=== PATIENT | male | born 1940 | race Caucasian/White ===

== ENCOUNTER 2016-11-05 20:56 | Emergency (ER) | payer BC ==
[~2016-11-05] VITALS: Ht 177.8 cm; Wt 83.9 kg
--- NOTE | 2016-11-05 21:30 | ED EENT ---
History of Present Illness General Chief Complaint: Nasal Problems Stated Complaint: NOSE BLEED Source: patient Exam Limitations: no limitations History of Present Illness Time seen by provider: 21:28 Initial Comments To ER with a right-sided nosebleed that began earlier this evening. He's never had this before. This began after blowing his nose. He is on aspirin only. He does not wear oxygen at home. He does use Ankit-Synephrine for nasal congestion once or twice daily. Timing/Duration: abrupt Severity: moderate Location: nose Associated Symptoms: denies symptoms Allergies and Home Medications Allergies Coded Allergies: No Known Drug Allergies (Unverified , 11/11/10) Home Medications Allopurinol 300 Mg Tablet, #30 (Reported) Aspirin 325 Mg Tablet, 160 MG PO DAILY, (Reported) Benazepril HCl 20 Mg Tablet, #60 (Reported) Hydrochlorothiazide 50 Mg Tablet, #30 (Reported) Review of Systems Constitutional: see HPI Eyes: No Symptoms Reported Ears: No Symptoms Reported Nose: see HPI Mouth: no symptoms reported Throat: no symptoms reported Respiratory: no symptoms reported Cardiovascular: no symptoms reported Musculoskeletal: no symptoms reported Past Qsozptf-Idsdpb-Mvtbsh Hx Patient Social History Alcohol Use: Occasionally Uses Recreational Drug Use: No Smoking Status: Never a Smoker 2nd Hand Smoke Exposure: No Recent Foreign Travel: No Contact w/Someone Who Travel: No Recent Hopitalizations: No Seasonal Allergies Seasonal Allergies: No Cardiovascular Cardiac Disorders: Hypertension Physical Exam Vital Signs Vital Sign - Last 12Hours 11/05/16 21:00 Temp 97.9 Pulse 72 Resp 20 B/P (MAP) 130/80 Pulse Ox 93 O2 Delivery Room Air General Appearance: WD/WN, no apparent distress Eyes: bilateral eye EOMI, bilateral eye PERRL, bilateral eye normal inspection Ears: bilateral ear TM normal, bilateral ear auricle normal, bilateral ear canal normal Nose: other (small pulsatile bleed from the right side of the septum anteriorly. Easily cauterized with a few sticks of silver nitrate. Hemostasis achieved at this time 2119) Neck: non-tender, full range of motion Respiratory: normal breath sounds, no respiratory distress, no accessory muscle use Gastrointestinal: normal bowel sounds, non tender Neurologic/Psychiatric: alert, normal mood/affect, oriented x 3 Skin: normal color, warm/dry Progress/Results/Core Measures Results/Orders Vital Signs/I&O Vital Sign - Last 12Hours 11/05/16 21:00 Temp 97.9 Pulse 72 Resp 20 B/P (MAP) 130/80 Pulse Ox 93 O2 Delivery Room Air Departure Impression Impression: Primary Impression: Epistaxis Disposition: HOME, SELF-CARE Condition: Stable Departure-Patient Inst. Decision time for Depature: 21:29 Referrals: DANIELLE KAPLAN MD (PCP/Family) Primary Care Physician Patient Instructions: Nosebleeds (DC) Add. Discharge Instructions: 1. If the bleeding recurs, simply leaning forward, pinch your nose shut and return to the emergency room All discharge instructions reviewed with patient and/or family. Voiced understanding. LEO MASTERS APRN November 05, 2016 21:30
[2016-11-05] MEDS ORDERED: ASPI-808 PO (21:33)
[2016-11-05] MEDS ORDERED: ALLO300T2 (21:33)
[2016-11-05] MEDS ORDERED: BENA20TA2 (21:33)
[2016-11-05] MEDS ORDERED: HYDR50TA3 (21:33)
[2016-11-05 22:19] VITALS: BP 119/73
== END 2016-11-05 22:19 | disposition home or self-care (01) ==
LOC: EDUNIT# 20:56 → ER 20:58
DX: R04.0 Epistaxis (principal); I10 Essential (primary) hypertension; Z79.82 Long term (current) use of aspirin; Z79.899 Other long term (current) drug therapy
CPT/HCPCS: 99284

== ENCOUNTER → 2016-11-20 | Outpatient (CLI) | payer BC ==
[~2016-11-20] MED LIST: ALLO300T2; ASPI-808 PO; BENA20TA2; HYDR50TA3
--- NOTE | 2016-11-20 14:42 | Diagnostic Imaging Report ---
Scrotal ultrasound. INDICATION: Scrotal pain. FINDINGS: The right testicle is 5.4 x 3.1 x 3.2 cm. The left testicle is 5.3 x 2.7 x 3.1 cm. The testicles are fairly homogeneous with no focal mass seen. There is a 6 mm right epididymal cyst. No solid mass is seen. The left epididymis is slightly larger and hypervascular compared to the right. Color Doppler evaluation demonstrates symmetric vascularity in the testicles with arterial and venous waveforms noted in both testicles. There is minimal fluid around the testicles, probably physiologic. IMPRESSION: Mild left epididymitis. Dictated by: Dictated on workstation # [id number]
== END ==
LOC: RAD 13:49
PROVIDERS: ATTEND Specialist
DX: N50.812 Left testicular pain (principal); N45.1 Epididymitis
CPT/HCPCS: 76870

== ENCOUNTER 2019-06-01 11:18 | Emergency (ER) | payer MEDICARE, OTHER ==
[~2019-06-01] VITALS: Ht 180.3 cm; Wt 79.4 kg
[~2019-06-01 11:18] MED LIST changes: -BENA20TA2; +BENA20TA7
[2019-06-01] MEDS ORDERED: TETANUS,DIPTH,PERTUSS P/F (BOOSTRIX) 0.5 ML VIAL IM ONE (11:45)
[2019-06-01] MEDS ORDERED: CEPH-507 PO (11:45)
--- NOTE | 2019-06-01 11:45 | ED Head Injury ---
General Chief Complaint: Laceration Stated Complaint: HEAD LAC Nursing Triage Note: PT WAS HIT IN THE RIGHT SIDE FOREHEAD WITH A HAND DELORES. NO FALL, LOC, DIZZYNESS, N/V. Source: patient Exam Limitations: no limitations History of Present Illness Date Seen by Provider: Jun 01, 2019 Time Seen by Provider: 11:41 Initial Comments ER with reports of a scalp laceration, this of the right frontal scalp, he was at work cleaning out a building using a 2 wheel delores. The handle popped up and struck him in the aforementioned area. There was no loss of consciousness no headache no dizziness no confusion. He is not on any anticoagulant or antiplatelet medications. His only medication is fish oil. Tetanus is not up-to-date. This occurred 20 minutes prior to arrival. He states this was a very dirty area he was cleaning. Occurred: this evening Severity: moderate Location: frontal Method of Injury: unknown Loss of Consciousness: no loss of consciousness Associated Systoms: No Headaches, No Nausea/Vomiting Allergies and Home Medications Allergies Coded Allergies: No Known Drug Allergies (Unverified , 11/11/10) Home Medications Aspirin 325 Mg Tablet, 160 MG PO DAILY, (Reported) Cephalexin 500 Mg Capsule, 500 MG PO TID Prescribed by: LEO MASTERS on 06/01/19 1145 Patient Home Medication List Home Medication List Reviewed: Yes Review of Systems Review of Systems Constitutional: see HPI Eyes: No Symptoms Reported Ears, Nose, Mouth, Throat: no symptoms reported Respiratory: no symptoms reported Cardiovascular: no symptoms reported Genitourinary: no symptoms reported Musculoskeletal: no symptoms reported Skin: no symptoms reported Psychiatric/Neurological: No Symptoms Reported; Denies Headache Endocrine: No Symptoms Reported Past Oixskks-Itkxcx-Rxxqes Hx Patient Social History Alcohol Use: Denies Use Recreational Drug Use: No Smoking Status: Never a Smoker 2nd Hand Smoke Exposure: No Recent Foreign Travel: No Contact w/Someone Who Travel: No Recent Infectious Disease Expo: No Recent Hopitalizations: No Physical Abuse: No Sexual Abuse: No Mistreated: No Fear: No Seasonal Allergies Seasonal Allergies: No Past Medical History Surgeries: Yes (GROWTH OFF LEFT OUTSIDE ABD) Adenoidectomy, Tonsillectomy Respiratory: No Cardiac: Yes Hypertension Neurological: No Genitourinary: No Gastrointestinal: No Musculoskeletal: No Endocrine: No HEENT: No Cancer: No Psychosocial: No Integumentary: No Blood Disorders: No Physical Exam Vital Signs Vital Signs - First Documented 06/01/19 06/01/19 11:24 11:55 Pulse 92 Resp 17 B/P (MAP) 156/95 (115) Pulse Ox 98 O2 Delivery Room Air Capillary Refill : Less Than 3 Seconds Height, Weight, BMI Height: 5'10.00" Weight: 185lbs. oz. 83.493132hb; 24.00 BMI Method:Stated General Appearance: WD/WN, no apparent distress HEENT: PERRL/EOMI, normal ENT inspection, TMs normal, other (2 cm laceration to the right frontal scalp oriented anterior to posterior. Depth is simultaneous tissue, minimal active bleeding.) Neck: non-tender, full range of motion; No tender lateral, No tender midline Cardiovascular: regular rate, rhythm, no murmur Respiratory: no respiratory distress, no accessory muscle use Gastrointestinal: normal bowel sounds, non tender, soft Psychiatric: alert, oriented x 3 [place] Nerves: normal hearing, normal speech, PERRL Skin: normal color, warm/dry [place] Coma Score Best Eye Response: (4) Open Spontaneously Best Verbal Response: (5) Oriented Best Motor Response: (6) Obeys Commands [place] Total: 15 Procedures/Interventions Wound Location: Scalp Wound Length (cm): 2 Wound's Depth, Shape: linear, sub Q Wound Explored: clean Irrigated w/ Saline (ccs): 120 Anesthesia: Lidocaine w/ Epi Volume Anesthetic (ccs): 3 Staple Repair: Stapler 35W Number of Sutures: 6 Progress/Results/Core Measures Results/Orders My Orders Orders - LEO MASTERS APRN Dipht,Pertuss(Acell),Tet Adult (Boostrix (06/01/19 11:45) Medications Given in ED Current Medications Medications Dose Ordered Sig/Chelo Route Start Time Stop Time Status Last Admin Dose Admin Diphtheria/ Tetanus/Acell Pertussis 0.5 ml ONCE ONCE IM 06/01/19 11:45 06/01/19 11:46 DC 06/01/19 11:50 0.5 ML Vital Signs/I&O 06/01/19 06/01/19 11:24 11:55 Pulse 92 81 Resp 17 18 B/P (MAP) 156/95 (115) 149/80 Pulse Ox 98 O2 Delivery Room Air Room Air Blood Pressure Mean: 115 POS Departure Communication (Admissions) I discussed with obtaining a head CT, this would be the recommendation given his age, but he has no symptoms of head injury, he is not on anticoagulant use and this was not a fall, sounds like this was more of a sharp piece of metal on the handle that got him. He would prefer to forego CT imaging at this time, he assures that he'll return for any sign of head injury such as headache nausea vomiting dizziness or confusion. Impression Primary Impression: Scalp laceration Qualified Codes: S01.01XA - Laceration without foreign body of scalp, initial encounter Disposition: HOME, SELF-CARE Condition: Stable Departure-Patient Inst. Decision time for Depature: 11:44 Referrals: DANIELLE KAPLAN MD (PCP/Family) Primary Care Physician Patient Instructions: Laceration Repair With Hiren (DC) Add. Discharge Instructions: 1. Return to ER for any concerns 2. Follow-up with your doctor later this week for recheck. Take antibiotics as directed you may shower tonight leading water run over this generally do not scrub it however. No need to apply any ointments. Return promptly to ER for any sign of a head injury which would be headache dizziness confusion nausea or vomiting. All discharge instructions reviewed with patient and/or family. Voiced understanding. Scripts Cephalexin (Keflex) 500 Mg Capsule 500 MG PO TID, #15 CAP Prov: LEO MASTERS APRN 06/01/19 LEO MASTERS APRN Jun 01, 2019 11:45 POS
[2019-06-01 11:55] VITALS: BP 149/80
== END 2019-06-01 11:55 | disposition home or self-care (01) ==
LOC: ER 11:18 → EDUNIT# 11:18 → ER 11:55
DX: S01.01XA Laceration without foreign body of scalp, initial encounter (principal); I10 Essential (primary) hypertension; Z90.49 Acquired absence of other specified parts of digestive tract; Z90.89 Acquired absence of other organs; Z23 Encounter for immunization; Z79.82 Long term (current) use of aspirin; W22.8XXA Striking against or struck by other objects, initial encounter; Y92.59 Other trade areas as the place of occurrence of the external cause
CPT/HCPCS: 90471; 90715; 99284

== ENCOUNTER 2019-06-08 10:59 | Emergency (ER) | payer OTHER, MEDICARE ==
[~2019-06-08] VITALS: Ht 180 cm; Wt 79.4 kg
[~2019-06-08 10:59] MED LIST changes: +CEPH-507 PO
[2019-06-08 11:04] VITALS: BP 141/81
== END 2019-06-08 11:05 | disposition home or self-care (01) ==
LOC: EDUNIT# 10:59 → ER 11:00
DX: S01.81XD Laceration without foreign body of other part of head, subsequent encounter (principal); X58.XXXD Exposure to other specified factors, subsequent encounter

== ENCOUNTER → 2019-12-29 | Outpatient (CLI) | payer OTHER, MEDICARE ==
--- NOTE | 2019-12-29 16:36 | Diagnostic Imaging Report ---
PROCEDURE: US right lower extremity venous. TECHNIQUE: Multiple real-time grayscale images were obtained over the right lower extremity in various projections. Additional spectral analysis and color Doppler duplex images were also obtained. INDICATION: Right leg swelling The veins of the right leg have good color filling and compressibility. There is phasic flow and a normal response to augmentation. IMPRESSION: Negative venous Doppler of the right leg Dictated by: Dictated on workstation # [id number]
== END ==
LOC: RAD 15:06
PROVIDERS: ATTEND Family Medicine
DX: M79.604 Pain in right leg (principal); M79.89 Other specified soft tissue disorders

== ENCOUNTER 2020-07-29 17:11 | Inpatient (IN) | payer MEDICARE, OTHER ==
[~2020-07-29] VITALS: Ht 177 cm; Wt 82.0 kg
[~2020-07-29 17:11] MED LIST changes: -BENA20TA7; +BENA20TA7 PO
--- NOTE | 2020-07-29 17:26 | ED General ---
General Stated Complaint: HIGH BP Source of Information: Patient Exam Limitations: No Limitations History of Present Illness Date Seen by Provider: Jul 29, 2020 Time Seen by Provider: 17:24 Initial Comments To ER by private vehicle with reports of high blood pressure. He had a little pressure on his chest earlier which made him check his blood pressure and found it to be 200/120. This worried him and he came to ER. He states that right now he feels "perfectly fine". Typically his BP runs 120s over 90s well controlled on norvasc and benazepril. No cough no fever no chills. He had laser eye surgery last week and was told on clinical exam prior to surgery that the doctor heard something on the right side of his chest and asked him if he had any history of heart failure. Timing/Duration: 1-3 Hours Severity: Moderate Associated Systoms: No Cough, No Shortness of Air Allergies and Home Medications Allergies Coded Allergies: No Known Drug Allergies (Unverified , 11/11/10) Home Medications Amlodipine Besylate 5 Mg Tablet, 5 MG PO BID, (Reported) Benazepril HCl 20 Mg Tablet, 20 MG PO BID, (Reported) Patient Home Medication List Home Medication List Reviewed: Yes Review of Systems Review of Systems Constitutional: see HPI EENTM: see HPI Respiratory: see HPI Cardiovascular: see HPI, chest pain Genitourinary: no symptoms reported Musculoskeletal: no symptoms reported Skin: no symptoms reported Psychiatric/Neurological: No Symptoms Reported Hematologic/Lymphatic: No Symptoms Reported Immunological/Allergic: no symptoms reported Past Koteuog-Dghcyh-Fxfqlc Hx Patient Social History 2nd Hand Smoke Exposure: No Recent Hopitalizations: No Seasonal Allergies Seasonal Allergies: No Past Medical History Surgeries: Yes (GROWTH OFF LEFT OUTSIDE ABD) Adenoidectomy, Tonsillectomy Respiratory: No Cardiac: Yes Hypertension Neurological: No Genitourinary: No Gastrointestinal: No Musculoskeletal: No Endocrine: No HEENT: No Cancer: No Psychosocial: No Integumentary: No Blood Disorders: No Physical Exam Vital Signs Capillary Refill : Height, Weight, BMI Height: 5'10.00" Weight: 185lbs. oz. 83.735201bj; 24.00 BMI Method:Estimated General Appearance: No Apparent Distress, WD/WN, Other (Blood pressure 188/124) Eyes: Bilateral Eye Normal Inspection, Bilateral Eye PERRL, Bilateral Eye EOMI Neck: Full Range of Motion, Normal Inspection Respiratory: No Accessory Muscle Use, No Respiratory Distress, Crackles (On the right) Cardiovascular: Regular Rate, Rhythm, Normal Peripheral Pulses Gastrointestinal: Normal Bowel Sounds, Non Tender, Soft Extremity: Normal Capillary Refill, Normal Inspection Neurologic/Psychiatric: Alert, Oriented x3 Skin: Normal Color, Warm/Dry Progress/Results/Core Measures Suspected Sepsis SIRS Temperature: Pulse: Respiratory Rate: Laboratory Tests 07/29/20 17:33: White Blood Count 10.1 Blood Pressure / Mean: Laboratory Tests 07/29/20 17:33: Creatinine 1.53H, Platelet Count 165, Total Bilirubin 0.7 Results/Orders Lab Results Laboratory Tests Test 07/29/20 17:20 07/29/20 17:33 Range/Units Urine Color YELLOW Urine Clarity CLEAR Urine pH 7.5 5-9 Urine Specific [place] 1.015 L 1.016-1.022 Urine Protein 1+ H NEGATIVE Urine Glucose (UA) NEGATIVE NEGATIVE Urine Ketones NEGATIVE NEGATIVE Urine Nitrite NEGATIVE NEGATIVE Urine Bilirubin NEGATIVE NEGATIVE Urine Urobilinogen 0.2 < = 1.0 MG/DL Urine Leukocyte Esterase NEGATIVE NEGATIVE Urine RBC (Auto) NEGATIVE NEGATIVE Urine RBC NONE /HPF Urine WBC RARE /HPF Urine Squamous Epithelial Cells RARE /HPF Urine Crystals NONE /LPF Urine Bacteria NEGATIVE /HPF Urine Casts NONE /LPF Urine Mucus NEGATIVE /LPF Urine Culture Indicated NO White Blood Count 10.1 4.3-11.0 10^3/uL Red Blood Count 5.92 H 4.30-5.52 10^6/uL Hemoglobin 17.5 13.3-17.7 g/dL Hematocrit 51 40-54 % Mean Corpuscular Volume 86 80-99 fL Mean Corpuscular Hemoglobin 30 25-34 pg Mean Corpuscular Hemoglobin Concent 34 32-36 g/dL Red Cell Distribution Width 12.7 10.0-14.5 % Platelet Count 165 130-400 10^3/uL Mean Platelet Volume 10.0 9.0-12.2 fL Immature Granulocyte % (Auto) 0 % Neutrophils (%) (Auto) 84 H 42-75 % Lymphocytes (%) (Auto) 10 L 12-44 % Monocytes (%) (Auto) 5 0-12 % Eosinophils (%) (Auto) 1 0-10 % Basophils (%) (Auto) 0 0-10 % Neutrophils # (Auto) 8.4 H 1.8-7.8 10^3/uL Lymphocytes # (Auto) 1.0 1.0-4.0 10^3/uL Monocytes # (Auto) 0.5 0.0-1.0 10^3/uL Eosinophils # (Auto) 0.1 0.0-0.3 10^3/uL Basophils # (Auto) 0.0 0.0-0.1 10^3/uL Immature Granulocyte # (Auto) 0.0 0.0-0.1 10^3/uL Sodium Level 141 135-145 MMOL/L Potassium Level 4.6 3.6-5.0 MMOL/L Chloride Level 101 98-107 MMOL/L Carbon Dioxide Level 25 21-32 MMOL/L Anion Gap 15 H 5-14 MMOL/L Blood Urea Nitrogen 26 H 7-18 MG/DL Creatinine 1.53 H 0.60-1.30 MG/DL Estimat Glomerular Filtration Rate 44 BUN/Creatinine Ratio 17 Glucose Level 98 70-105 MG/DL Calcium Level 9.5 8.5-10.1 MG/DL Corrected Calcium 8.5-10.1 MG/DL Magnesium Level 2.4 1.6-2.4 MG/DL Total Bilirubin 0.7 0.1-1.0 MG/DL Aspartate Amino Transf (AST/SGOT) 32 5-34 U/L Alanine Aminotransferase (ALT/SGPT) 17 0-55 U/L Alkaline Phosphatase 94 40-136 U/L Troponin I 0.034 H <0.028 NG/ML Total Protein 8.4 H 6.4-8.2 GM/DL Albumin 4.6 H 3.2-4.5 GM/DL My Orders Orders - LEO MASTERS APRN Troponin I (07/29/20 17:22) BNP (07/29/20 17:22) Magnesium (07/29/20 17:22) Chest 1 View, Ap/Pa Only (07/29/20 17:22) Ed Iv/Invasive Line Start (07/29/20 17:22) Cbc With Automated Diff (07/29/20 17:22) Comprehensive Metabolic Panel (07/29/20 17:22) Ekg Tracing (07/29/20 17:22) Continuous Ekg Monitoring (07/29/20 17:22) Clonidine Tablet (Catapres Tablet) (07/29/20 17:30) Ua Culture If Indicated (07/29/20 17:26) Procalcitonin (Pct) (07/29/20 17:47) Ondansetron Injection (Zofran Injectio (07/29/20 18:00) Ondansetron Injection (Zofran Injectio (07/29/20 17:46) Clopidogrel Tablet (Plavix Tablet) (07/29/20 18:00) Aspirin Chewable Tablet (Baby Aspirin Ch (07/29/20 18:00) Nitroglycerin 0.4 Mg Btl 25's (Nitrostat (07/29/20 17:56) Covid 19 Inhouse Test (07/29/20 18:05) Metoprolol Tartrate Injection (Lopressor (07/29/20 18:15) Medications Given in ED Current Medications Medications Dose Ordered Sig/Chelo Route Start Time Stop Time Status Last Admin Dose Admin Aspirin 324 mg ONCE ONCE PO 07/29/20 18:00 07/29/20 18:01 DC 07/29/20 18:01 324 MG Clonidine HCl 0.1 mg ONCE ONCE PO 07/29/20 17:30 07/29/20 17:31 DC 07/29/20 17:39 0.1 MG Clopidogrel Bisulfate 300 mg ONCE ONCE PO 07/29/20 18:00 07/29/20 18:01 DC 07/29/20 18:01 300 MG Nitroglycerin 0.4 mg STK-MED ONCE SL 07/29/20 17:56 07/29/20 18:00 DC 07/29/20 18:01 0.4 MG Ondansetron HCl 8 mg ONCE ONCE IVP 07/29/20 18:00 07/29/20 18:01 DC 07/29/20 17:54 8 MG Vital Signs/I&O Capillary Refill : Departure Communication (Admissions) 175-became nauseated and with recurrence of chest pressure. 8 mg of Zofran ordered. 1802-EKG shows ST segment elevation in aVR aVL V1 V2 V3 with reciprocal depression in lead II, III and aVF. Spoke with Dr. Shukla, will call in the [employer] team. 300 mg of Plavix and 324 mg of aspirin ordered as well as nitroglycerin 0.4mg sl and lopressor 5mg IV. . Impression Primary Impression: STEMI (ST elevation myocardial infarction) Qualified Codes: I21.3 - ST elevation (STEMI) myocardial infarction of unspecified site Disposition: ADMITTED INPATIENT Condition: Stable Admissions Decision to Admit Reason: Admit from ER (General) Decision to Admit/Date: Jul 29, 2020 Departure-Patient Inst. Referrals: DNAII MAGAÑA MD (PCP/Family) Primary Care Physician LEO MASTERS APRN Jul 29, 2020 17:25
[2020-07-29] MEDS ORDERED: cloNIDine 0.1 MG (CATAPRES) TAB PO ONE (17:30)
[2020-07-29 17:31] LABS: BILIRUBIN,URINE NEGATIVE (NEGATIVE); CLARITY,URINE CLEAR; COLOR,URINE YELLOW; GLUCOSE, URINE (UA) NEGATIVE (NEGATIVE); KETONES,URINE NEGATIVE (NEGATIVE); LEUKOCYTE ESTERASE ,URINE NEGATIVE (NEGATIVE); NITRITE,URINE NEGATIVE (NEGATIVE); PH,URINE 7.5 (5-9); PROTEIN,URINE 1+ (NEGATIVE)
[2020-07-29 17:38] LABS: BACTERIA,URINE NEGATIVE /HPF; SQUAMOUS EPITHELIAL CELL,UR RARE /HPF; WBC,URINE RARE /HPF
[2020-07-29 17:41] LABS: BASOPHILS % (AUTO) 0 % (0-10); EOSINOPHILS # (AUTO) 0.1 10^3/uL (0.0-0.3); EOSINOPHILS % (AUTO) 1 % (0-10); HEMATOCRIT 51 % (40-54); HEMOGLOBIN 17.5 g/dL (13.3-17.7); LYMPHOCYTES % (AUTO) 10 % (12-44); MEAN CORPUSCULAR HEMOGLOBIN 30 pg (25-34); MEAN CORPUSCULAR HGB CONC 34 g/dL (32-36); MEAN CORPUSCULAR VOLUME 86 fL (80-99); MONOCYTES # (AUTO) 0.5 10^3/uL (0.0-1.0); MONOCYTES % (AUTO) 5 % (0-12); NEUTROPHILS # (AUTO) 8.4 10^3/uL (1.8-7.8); NEUTROPHILS % (AUTO) 84 % (42-75); PLATELET COUNT 165 10^3/uL (130-400); WHITE BLOOD COUNT 10.1 10^3/uL (4.3-11.0)
[2020-07-29] MEDS ORDERED: AMLO-250 PO (17:42)
[2020-07-29] MEDS ORDERED: ONDANSETRON 4 MG/2 ML (SDV) Z0FRAN ONE (17:46)
--- NOTE | 2020-07-29 17:47 | NUR ---
Pt c/o nausea at this time, zofran given
[2020-07-29 17:54] LABS: ALBUMIN 4.6 GM/DL (3.2-4.5)
[2020-07-29 17:55] LABS: CHLORIDE 101 MMOL/L (98-107); POTASSIUM 4.6 MMOL/L (3.6-5.0); SODIUM 141 MMOL/L (135-145)
[2020-07-29 17:56] LABS: CALCIUM 9.5 MG/DL (8.5-10.1)
[2020-07-29] MEDS ORDERED: NITROGLYCERIN 0.4 MG SL TABS BTL 25'S SL ONE (17:56)
[2020-07-29 17:57] LABS: GLUCOSE 98 MG/DL (70-105); TOTAL PROTEIN 8.4 GM/DL (6.4-8.2)
[2020-07-29 17:58] LABS: CARBON DIOXIDE 25 MMOL/L (21-32)
[2020-07-29 17:59] LABS: BILIRUBIN,TOTAL 0.7 MG/DL (0.1-1.0)
[2020-07-29 18:00] LABS: ALKALINE PHOSPHATASE 94 U/L (40-136)
[2020-07-29] MEDS ORDERED: ASPIRIN 81 MG CHEW (CHILDREN'S ASA) PO ONE (18:00)
[2020-07-29] MEDS ORDERED: ONDANSETRON 4 MG/2 ML (SDV) Z0FRAN IVP ONE (18:00)
[2020-07-29] MEDS ORDERED: CLOPIDOGREL 300 MG (PLAVIX) TABLET PO ONE ×2 (18:00→18:30)
--- NOTE | 2020-07-29 18:00 | NUR ---
cath lab nurse called in per Dr Shukla's request for stemi
[2020-07-29 18:01] LABS: CREATININE SERUM 1.53 MG/DL (0.60-1.30); GFR ESTIMATED 44
[2020-07-29 18:02] LABS: BUN/CREATININE RATIO 17
[2020-07-29 18:03] LABS: ALANINE AMINOTRANSFERASE 17 U/L (0-55)
[2020-07-29 18:04] LABS: MAGNESIUM 2.4 MG/DL (1.6-2.4)
--- NOTE | 2020-07-29 18:08 | Diagnostic Imaging Report ---
EXAMINATION: Chest 1 view. HISTORY: Hypertension. Right-sided crackles. COMPARISON: None available. FINDINGS: The lung volumes are normal. No focal consolidation is seen. Small amount of atelectasis is seen in the left lung base. No large pleural effusion or pneumothorax is seen. The cardiomediastinal silhouette is normal in size and contour. There is calcified aortic atherosclerotic plaque. No acute osseous abnormality is seen. IMPRESSION: Left basilar atelectasis. No focal consolidation or pleural effusion. Dictated by: Dictated on workstation # [id number]
[2020-07-29] MEDS ORDERED: meTOprolol 5 MG/5 ML (LOPRESSOR) VIAL IV ONE (18:15)
[2020-07-29] MEDS ORDERED: MIDAZOLAM 5 MG/5 ML (VERSED) VIAL ONE (18:24)
[2020-07-29] MEDS ORDERED: LIDOCAINE 1% INJ 20 ML 20 ML VIAL ONE (18:24)
[2020-07-29] MEDS ORDERED: EPTIFIBATIDE BOLUS 20 ML IV ONE (18:25)
[2020-07-29] MEDS ORDERED: NITRO DRIP 25000 MCG/D5W 250 ML IV ONE ×2 (18:25→18:54)
[2020-07-29] MEDS ORDERED: NS IV 1000 ML 1,000 ML ONE (18:25)
[2020-07-29] MEDS ORDERED: HEParin (CATH LAB) 2,000 ML IV ONE (18:25)
[2020-07-29] MEDS ORDERED: fentaNYL INJECTION 100 MCG/2 ML AMP ONE (18:25)
[2020-07-29] MEDS ORDERED: HEParin 1000 UNIT/ML (10ML VIAL) FOR BOLUS ONE (18:25)
[2020-07-29] MEDS ORDERED: HEParin 1000 UNIT/ML (10ML VIAL) FOR BOLUS IV SCH (18:30)
--- NOTE | 2020-07-29 18:30 | Cardiology History & Physical ---
HPI-Cardiology Cardiology Consultation Date of Consultation 07/29/20 Date of Admission Time Seen by Provider: 18:27 Indication: STEMI HPI 79 years old gentleman with history of hypertension, BPH, has been having waxing and waning left-sided chest pain on and off for the past 24 hours, noted today that his blood pressure is significantly elevated was around 200/100. Came into the emergency room and on arrival to the ER he denied any active pain. The pressure was elevated. EKG showed changes suggestive of ST elevation myocardial infarction, after arrival within 30 minutes he started to have active chest pain. Described as dull achiness on the left side of his chest. No shortness of breath. No diaphoresis. No palpitation. PMH-Cardiology Seasonal Allergies Seasonal Allergies: No Surgeries Yes (GROWTH OFF LEFT OUTSIDE ABD) Respiratory No Cardiovascular Yes Neurological No Genitourinary No Gastrointestinal No Musculoskeletal No Endocrine No HEENT No Cancer No Psychosocial No Integumentary No Blood Transfusions No Social History Patient Social History Marrital Status: Employed/Student: retired Family Hx Other Noncontributory ROS-Cardiology Review of Systems General: No Chills, No Night Sweats, No Fatigue, No Malaise, No Appetite HEENT: No Head Aches, No Visual Changes, No Eye Pain, No Ear Pain, No Dysphasia, No Sinus Congestion, No Post Nasal Drip, No Sore Throat Pulmonary: No Dyspnea, No Cough, No Pleuritic Chest Pain Cardiovascular: Chest Pain; No: Palpitations, Orthopnea, Paroxysmal Noc. Dyspnea, Edema, Lt Headedness Gastrointestinal: No: Nausea, Vomiting, Abdominal Pain, Diarrhea, Constipation, Melena, Hematochezia Genitourinary: No Dysuria, No Frequency, No Incontinence, No Hematuria, No Retention Musculoskeletal: No: neck pain, shoulder pain, arm pain, back pain, hand pain, leg pain, foot pain Neurological: No: Weakness, Numbness, Incoordination, Change in speech, Confusion, Seizures Home Medications & Allergies Allergies: Coded Allergies: No Known Drug Allergies (Unverified , 11/11/10) Home Medication List Reviewed: Yes Exam-Cardiology Exam General Appearance: Alert, Oriented X3, Cooperative, No Acute Distress HEENT: Atraumatic, PERRLA Respiratory: Clear to Auscultation, Normal Air Movement Cardiovascular: Regular Rate, Normal S1, Normal S2, No Murmurs Abdominal: Normal Bowel Sounds, Soft, No Tenderness, No Hepatosplenomegaly, No Masses Extremities: No Clubbing, No Cyanosis, No Edema, Normal Pulses, No Tendernes s/Swelling Skin: No Rashes, No Breakdown, No Significant Lesion Neuro: Normal Gait, Normal Speech, Strength at 5/5 X4 Ext, Normal Tone, Sensation Intact Psych/Mental Status: Mental Status NL, Mood NL Results Labs Labs Laboratory Tests 07/29/20 17:20: Urine Color YELLOW, Urine Clarity CLEAR, Urine pH 7.5, Urine Specific [place] 1.015L, Urine Protein 1+H, Urine Glucose (UA) NEGATIVE, Urine Ketones NEGATIVE, Urine Nitrite NEGATIVE, Urine Bilirubin NEGATIVE, Urine Urobilinogen 0.2, Urine Leukocyte Esterase NEGATIVE, Urine RBC (Auto) NEGATIVE, Urine RBC NONE, Urine WBC RARE, Urine Squamous Epithelial Cells RARE, Urine Crystals NONE, Urine Bacteria NEGATIVE, Urine Casts NONE, Urine Mucus NEGATIVE, Urine Culture Indicated NO 07/29/20 17:33: White Blood Count 10.1, Red Blood Count 5.92H, Hemoglobin 17.5, Hematocrit 51, Mean Corpuscular Volume 86, Mean Corpuscular Hemoglobin 30, Mean Corpuscular Hemoglobin Concent 34, Red Cell Distribution Width 12.7, Platelet Count 165, Mean Platelet Volume 10.0, Immature Granulocyte % (Auto) 0, Neutrophils (%) (Auto) 84H, Lymphocytes (%) (Auto) 10L, Monocytes (%) (Auto) 5, Eosinophils (%) (Auto) 1, Basophils (%) (Auto) 0, Neutrophils # (Auto) 8.4H, Lymphocytes # (Auto) 1.0, Monocytes # (Auto) 0.5, Eosinophils # (Auto) 0.1, Basophils # (Auto) 0.0, Immature Granulocyte # (Auto) 0.0, Sodium Level 141, Potassium Level 4.6, Chloride Level 101, Carbon Dioxide Level 25, Anion Gap 15H, Blood Urea Nitrogen 26H, Creatinine 1.53H, Estimat Glomerular Filtration Rate 44, BUN/Creatinine Ratio 17, Glucose Level 98, Calcium Level 9.5, Corrected Calcium , Magnesium Level 2.4, Total Bilirubin 0.7, Aspartate Amino Transf (AST/SGOT) 32, Alanine Aminotransferase (ALT/SGPT) 17, Alkaline Phosphatase 94, Troponin I 0.034H, B- Type Natriuretic Peptide 26.6, Total Protein 8.4H, Albumin 4.6H A/P-Cardiology Admission Diagnosis Acute myocardial infarction Coronary artery disease Malignant hypertension Hyperlipidemia Admission Status: Inpatient Order (span 2 midnights) Reason for Inpatient Admission: Acute myocardial infarction Assessment/Plan Acute/subacute ST elevation myocardial infarction, patient has been having chest pain waxing and waning for the past 24 hours, had EKG changes suggestive of ST elevation [place] in the anterior wall, was initially chest pain-free on arrival to the emergency room then started to have active chest pain Malignant hypertension, received clonidine, Lopressor, blood pressure is still elevated. I will start him on BROOK[place]NN inhibitor, beta blockers and nitroglycerin Questionable hyperlipidemia I will evaluate lipid profile BPH LANCE MILES MD Jul 29, 2020 18:30
--- NOTE | 2020-07-29 18:31 | Cardiac Procedure Note-CS/ASA ---
Pre-Procedure Note Pre-Op Procedure Note H&P Reviewed The H&P was reviewed, patient examined and no changes noted. Date H&P Reviewed: Jul 29, 2020 Time H&P Reviewed: 18:31 Conscious Sedation Pre-Proced Time 18:31 ASA Score 3 For ASA 3 and 4: Consider anesthesia and medical clearance. Also, for patients with a history of failed moderate sedation consider anesthesia. Airway Lungs Heart ASA score ASA 1: a normal healthy patient ASA 2: a patient with a mild systemic disease (mid diabetes, controlled hypertension, obesity x ASA 3: a patient with a severe systemic disease that limits activity (angina, COPD, prior Myocardial infarction) ASA 4: a patient with an incapacitating disease that is a constant threat to life (CHF, renal failure) ASA 5: a moribund patient not expected to survive 24 hrs. (ruptured aneurysm) ASA 6: a declared brain- patient whose organs are being harvested. For emergent operations, add the letter E after the classification Mallampati Classification Grade 3 Sedation Plan Analgesia, Amnesia, Plan communicated to team members, Discussed options with patient/fam, Discussed risks with patient/fam The patient is an appropriate candidate to undergo the planned procedure, sedation, and anesthesia. The patient immediately re-assessed prior to indication. LANCE MILES MD Jul 29, 2020 18:31
--- NOTE | 2020-07-29 18:41 | NUR ---
Pt to cardiac cath technician at this time, report given to LAYLA Echevarria and LAYLA Alicia. All belongings sent with pt. Pt has updated family by phone.
[2020-07-29] MEDS ORDERED: PATIENT MAY USE OWN MEDS, ALL PO SCH (19:15)
--- NOTE | 2020-07-29 19:25 | Cardiac Cath Report ---
Cardiac Cath Report Physician (s)/Metal Container Maker (s) Physician LANCE MILES MD Pre-Procedure Diagnosis Pre-Procedure Diagnosis: ST elevation myocardial infarction Post-Procedure Note Procedure Start Date: Jul 29, 2020 Name of Procedure: Left heart catheterization Emergency stenting of the LAD Findings/Procedure Note PROCEDURE NOTE: 79 years old gentleman with history of hypertension, has been having chest pain waxing and waning, came into the emergency room because of his elevated blood pressure his blood pressure was 200/100. He denied any chest pain on arrival to the emergency room. At 1752 patient started to have chest pain, EKG was done which showed ST elevation myocardial infarction and the anterior leads, I was called for evaluation and the catheter lab team was activated for emergency procedure. After explaining the procedure to the patient, all pros and cons were explained, all questions were answered. The patient signed the consent and then he was placed on the cardiac catheterization laboratory. Groin was prepped SL fashion local anesthesia was used. Sheath placed in the right femoral artery. Lucia right catheter was used to access the right coronary system, EBU guide was advanced to the left coronary system and intervention was made, pigtail catheter advanced to the left ventricular cavity and left ventricular pressure was evaluated and left ventriculogram was done, pullback LV to aorta was done. Percutaneous intervention Patient received 5000 unit of heparin in the emergency room, aspirin 325 and Plavix 600 mg, EBU guide was advanced to the left coronary system, angiogram showed total occlusion of the LAD proximally. BMW wire was advanced distally, across the lesion, predilatation with Mini Treck 2 x 12 millimeter with 1 inflation reestablishment of the flow then I proceeded with deployment of drug- eluting stent Jil 2.25 x 23 mm 115 reese expanded to 2.5 mm with excellent results. Time from onset of chest pain to reestablishment of flow was 66 minutes At the end of the procedure the sheath was removed. Closure device was deployed FINDINGS: Hemodynamics LV 120/8, end-diastolic pressure of 8 Aorta 169/93 mean of 100, during pullback no significant gradient was noted, patient was already on nitroglycerin drip ANATOMY: Left Main is free of obstructive disease Left Anterior Descending is totally occluded proximally, emergency angioplasty and deployment of Jil 2.25 x 23 mm expanded to 2.5 mm under 15 reese with excellent results, door to balloon time was 66 minutes Left Circumflex is moderate in size with mild irregularity nonobstructive disease Right Coronory Artery is dominant artery with mild disease nonobstructive disease LV Gram was done showing normal left ventricular size, normal contractility, EF 60 percent, anterior wall is bharati normally CONCLUSION: 1. Acute ST elevation myocardial infarction in the anterior wall with emergency angioplasty and stenting with door to balloon time 66 minutes 2. Total occlusion of the LAD was successful balloon angioplasty then deployment of Jil 2.25 x 23 mm expanded to 2.5 mm with excellent results 3. Large dominant right coronary artery with mild disease nonobstructive disease, mild disease in the circumflex artery 4. Normal left ventricular size, normal contracted 50, anterior wall is bharati normally, EF 60 percent 5. Malignant hypertension, patient was started on nitroglycerin drip DISCUSSION AND RECOMMENDATION: Patient was loaded with aspirin and Plavix, start on nitroglycerin drip, I am starting Toprol, lisinopril and Lipitor Anesthesia Type: Conscious Sedation Estimated blood loss (mL): 25 ml Contrast Amount: 82 ml Total Radiation Dose: 577 mGy Post-Procedure Diagnosis Post-operative diagnosis: Acute ST elevation myocardial infarction Coronary artery disease Malignant hypertension Hyperlipidemia LANCE MILES MD Jul 29, 2020 7:25 pm
[2020-07-29] MEDS ORDERED: PANTOPRAZOLE 40 MG (PROTONIX) TAB PO ONE ×2 (19:30→19:40)
[2020-07-29] MEDS ORDERED: lisINopril 40 MG (PRINIVIL) TABLET PO ONE (19:30)
[2020-07-29] MEDS ORDERED: meTOproloL SUCCINATE 50 MG (TOPROL XL) TAB PO SCH (19:30)
[2020-07-29] MEDS: NS IV 1000 ML 1,000 ML IV SCH (19:45)
[2020-07-29] MEDS: NITRO DRIP 25000 MCG/D5W 250 ML IV SCH (19:51)
--- NOTE | 2020-07-29 20:34 | NUR ---
PT MABEL MARTINEZ UPDATED AND GIVEN PT PASSWORD PER PT REQUEST.
[2020-07-30 03:53] LABS: BASOPHILS % (AUTO) 0 % (0-10); EOSINOPHILS % (AUTO) 0 % (0-10); HEMATOCRIT 41 % (40-54); LYMPHOCYTES # (AUTO) 0.9 10^3/uL (1.0-4.0); LYMPHOCYTES % (AUTO) 13 % (12-44); MEAN CORPUSCULAR HEMOGLOBIN 29 pg (25-34); MEAN CORPUSCULAR HGB CONC 34 g/dL (32-36); MEAN CORPUSCULAR VOLUME 86 fL (80-99); MEAN PLATELET VOLUME 9.7 fL (9.0-12.2); MONOCYTES # (AUTO) 0.4 10^3/uL (0.0-1.0); MONOCYTES % (AUTO) 6 % (0-12); NEUTROPHILS # (AUTO) 6.1 10^3/uL (1.8-7.8); NEUTROPHILS % (AUTO) 81 % (42-75); PLATELET COUNT 166 10^3/uL (130-400); WHITE BLOOD COUNT 7.5 10^3/uL (4.3-11.0)
[2020-07-30 04:14] LABS: CHLORIDE 105 MMOL/L (98-107); POTASSIUM 3.8 MMOL/L (3.6-5.0); SODIUM 140 MMOL/L (135-145)
[2020-07-30 04:15] LABS: CALCIUM 8.4 MG/DL (8.5-10.1)
[2020-07-30 04:16] LABS: TRIGLYCERIDES 100 MG/DL (<150); VLDL CHOLESTEROL 20 MG/DL (5-40)
[2020-07-30 04:17] LABS: GLUCOSE 94 MG/DL (70-105)
[2020-07-30 04:18] LABS: CARBON DIOXIDE 26 MMOL/L (21-32)
[2020-07-30 04:20] LABS: CREATININE SERUM 1.03 MG/DL (0.60-1.30); GFR ESTIMATED > 60; PHOSPHORUS 4.4 MG/DL (2.3-4.7)
[2020-07-30 04:21] LABS: BUN/CREATININE RATIO 22; CHOLESTEROL 158 MG/DL (< 200)
[2020-07-30 04:22] LABS: HDL CHOLESTEROL 42 MG/DL (40-60)
[2020-07-30 04:23] LABS: MAGNESIUM 2.2 MG/DL (1.6-2.4)
--- NOTE | 2020-07-30 04:58 | Pulmonary Consultation ---
History of Present Illness History of Present Illness Date Seen by Provider: Jul 30, 2020 Time Seen by Provider: 04:56 Date of Admission Reason for Visit: STEMI Allergies and Home Medications Allergies Coded Allergies: No Known Drug Allergies (Unverified , 11/11/10) Home Medications Amlodipine Besylate 5 Mg Tablet, 5 MG PO BID, (Reported) Benazepril HCl 20 Mg Tablet, 20 MG PO BID, (Reported) Past Snlockd-Kviddt-Egkgwv Hx Patient Social History Alcohol Use: Denies Use Smoking Status: Unknown if Ever Smoked 2nd Hand Smoke Exposure: No Recent Infectious Disease Expo: No Recent Hopitalizations: No Have you traveled recently?: No Immunizations Up To Date Date of Influenza Vaccine: Jun 04, 2020 Seasonal Allergies Seasonal Allergies: No Past Medical History Surgeries: Yes (GROWTH OFF LEFT OUTSIDE ABD) Adenoidectomy, Tonsillectomy Respiratory: No Cardiac: Yes Hypertension Neurological: No Genitourinary: No Gastrointestinal: No Musculoskeletal: No Endocrine: No HEENT: No Cancer: No Psychosocial: No Integumentary: No Blood Disorders: No Sepsis Event Evaluation Height, Weight, BMI Height: 5'10.00" Weight: 185lbs. oz. 83.689448ue; 26.20 BMI Method:Estimated Exam Exam Vital Signs Date Time Temp Pulse Resp B/P (MAP) Pulse Ox O2 Delivery O2 Flow Rate FiO2 07/30/20 04:02 36.6 07/30/20 03:58 Nasal Cannula 2.00 07/30/20 02:00 62 16 129/83 (98) 93 Room Air 07/30/20 01:00 64 17 130/77 (94) 88 Room Air 07/30/20 00:17 36.3 07/30/20 00:00 65 17 113/76 (88) 93 Room Air 07/29/20 23:00 60 18 117/79 (92) 94 Room Air 07/29/20 22:00 61 17 129/79 (96) 96 Room Air 07/29/20 22:00 Room Air 07/29/20 21:41 Nasal Cannula 1.00 07/29/20 21:04 Nasal Cannula 2.00 07/29/20 21:00 63 18 113/73 (86) 98 Nasal Cannula 3.00 07/29/20 20:28 98 Nasal Cannula 3.00 07/29/20 20:00 98 Nasal Cannula 3.00 07/29/20 20:00 68 17 113/71 (85) 96 Nasal Cannula 3.00 07/29/20 19:30 36.6 75 18 117/75 (89) 98 Nasal Cannula 3.00 07/29/20 18:41 36.5 84 18 168/109 98 Nasal Cannula 3.00 07/29/20 17:30 36.5 98 20 188/124 (145) 97 Room Air I & O 07/30/20 06:59 Intake Total 650 ml Output Total 350 ml Balance 300 ml Height & Weight Height: 5'10.00" Weight: 185lbs. oz. 83.405832xk; 26.20 BMI Method:Estimated General Appearance: No Apparent Distress, WD/WN, Other (Blood pressure 188/124) Neck: Full Range of Motion, Normal Inspection Respiratory: No Accessory Muscle Use, No Respiratory Distress, Crackles (On the right) Cardiovascular: Regular Rate, Rhythm, Normal Peripheral Pulses Capillary Refill: Less Than 3 Seconds Extremity: Normal Capillary Refill, Normal Inspection Neurologic/Psychiatric: Alert, Oriented x3 Skin: Normal Color, Warm/Dry Results Lab Laboratory Tests 07/29/20 17:33 07/30/20 03:24 Assessment/Plan Assessment/Plan STEMI s/p cath stent in LAD -Possible home today Hx of LOCO -Noncompliant with CPAP therapy Nonsmoker JERSEY ANTON DO Jul 30, 2020 04:58
[2020-07-30] MEDS: NS IV 1000 ML 1,000 ML IV SCH ×3 (05:26→23:38)
--- NOTE | 2020-07-30 07:37 | Diagnostic Imaging Report ---
Indication: Myocardial infarct. Time of exam: 2:03 AM Correlation is made with prior chest from one day earlier. There is some minimal infiltrate or atelectasis right base. Otherwise lungs are clear. There is no effusion or pneumothorax. Heart size is stable. Impression: Minimal right basilar infiltrate or atelectasis. Dictated by: Dictated on workstation # [id number]
[2020-07-30] MEDS: CLOPIDOGREL 75 MG (PLAVIX) TABLET PO SCH (09:21)
[2020-07-30] MEDS: PANTOPRAZOLE 40 MG (PROTONIX) TAB PO SCH (09:21)
[2020-07-30] MEDS: meTOproloL SUCCINATE 50 MG (TOPROL XL) TAB PO SCH (09:21)
[2020-07-30] MEDS: lisINopril 40 MG (PRINIVIL) TABLET PO SCH (09:21)
[2020-07-30] MEDS: ASPIRIN E.C. 81 MG (ECOTRIN) TAB PO SCH (09:21)
--- NOTE | 2020-07-30 09:51 | NUR ---
Pt is [employer]ianism and declines sacraments. Insurance Counselor offered blessing.
--- NOTE | 2020-07-30 10:11 | Cardiology Progress Note ---
Subjective Date Seen by Provider: Jul 30, 2020 Time Seen by Provider: 10:09 Subjective/Events-last exam Patient is laying down in bed, feeling better, groin is healing well. No chest pain Review of Systems General: No Chills, No Night Sweats, No Fatigue, No Malaise, No Appetite, No Other HEENT: No Head Aches, No Visual Changes, No Eye Pain, No Ear Pain, No Dysphasia , No Sinus Congestion, No Post Nasal Drip, No Sore Throat, No Other Pulmonary: No Dyspnea, No Cough, No Pleuritic Chest Pain, No Other Cardiovascular: No: Chest Pain, Palpitations, Orthopnea, Paroxysmal Noc. Dyspnea, Edema, Lt Headedness, Other Objective-Cardiology Exam Last Set of Vital Signs Vital Signs 07/30/20 07/30/20 07/30/20 04:02 06:00 06:50 Temp 36.6 Pulse 67 Resp 11 B/P (MAP) 140/84 (102) Pulse Ox 94 O2 Delivery Nasal Cannula O2 Flow Rate 2.00 Capillary Refill : Less Than 3 Seconds I&O Intake and Output 07/30/20 00:00 Intake Total 450 ml Balance 450 ml Intake Oral 450 ml Daily Weight Change No General: Alert, Oriented X3, Cooperative, No Acute Distress HEENT: Atraumatic, PERRLA Lungs: Clear to Auscultation, Normal Air Movement Heart: Regular Rate, Normal S1, Normal S2, No Murmurs Abdomen: Normal Bowel Sounds, Soft, No Tenderness, No Hepatosplenomegaly, No Masses Extremities: No Clubbing, No Cyanosis, No Edema, Normal Pulses, No Tenderness/Swelling Skin: No Rashes, No Breakdown, No Significant Lesion Neuro: Normal Gait, Normal Speech, Strength at 5/5 X4 Ext, Normal Tone, Sensation Intact Psych/Mental Status: Mental Status NL, Mood NL Results Lab Laboratory Tests 07/29/20 17:33 07/30/20 03:24 A/P-Cardiology Admission Diagnosis Acute myocardial infarction Coronary artery disease Malignant hypertension Hyperlipidemia Assessment/Plan Acute ST elevation myocardial infarction, status post emergency cardiac catheterization and stenting to the LAD with excellent results. Coronary artery disease status post emergency cardiac catheterization, 1. Acute ST elevation myocardial infarction in the anterior wall with emergency angioplasty and stenting with door to balloon time 66 minutes 2. Total occlusion of the LAD was successful balloon angioplasty then deployment of Jil 2.25 x 23 mm expanded to 2.5 mm with excellent results 3. Large dominant right coronary artery with mild disease nonobstructive disease, mild disease in the circumflex artery 4. Normal left ventricular size, normal contracted 50, anterior wall is bharait normally, EF 60 percent Malignant hypertension, blood pressure is better controlled. Continue to monitor Hyperlipidemia, LDL 110, started on Lipitor BPH LANCE MILES MD Jul 30, 2020 10:11 am
--- NOTE | 2020-07-30 15:41 | NUR ---
Received dietary consult for MST score. Given current PO intake, pt is not at risk for malnutrition at this time. Hugo Swartz, MS RD LD
[2020-07-30] MEDS: NITRO DRIP 25000 MCG/D5W 250 ML IV SCH (19:21)
--- NOTE | 2020-07-31 03:52 | Pulmonary Progress Note ---
Subjective Time Seen by a Provider: 03:52 Subjective/Events-last exam Probable home today. Sepsis Event Evaluation Height, Weight, BMI Height: 5'10.00" Weight: 185lbs. oz. 83.855071py; 26.20 BMI Method:Estimated Exam Exam Vital Signs Date Time Temp Pulse Resp B/P (MAP) Pulse Ox O2 Delivery O2 Flow Rate FiO2 07/31/20 02:48 36.6 07/31/20 00:52 68 07/31/20 00:00 67 21 144/87 (106) 95 Room Air 07/30/20 23:36 36.3 07/30/20 20:23 98 Room Air 07/30/20 20:21 36.7 07/30/20 20:00 63 21 136/81 (99) 92 Room Air 07/30/20 19:00 62 07/30/20 19:00 Room Air 07/30/20 18:00 63 22 137/83 (101) 93 Nasal Cannula 2.00 07/30/20 17:00 69 21 130/98 (109) 95 Nasal Cannula 2.00 07/30/20 16:00 63 16 137/84 (101) 93 Nasal Cannula 2.00 07/30/20 15:45 36.5 07/30/20 15:00 63 18 121/73 (89) 94 Nasal Cannula 2.00 07/30/20 14:00 64 20 122/71 (88) 92 Nasal Cannula 2.00 07/30/20 13:03 65 07/30/20 13:00 61 19 121/74 (90) 91 Nasal Cannula 2.00 07/30/20 12:00 63 18 114/74 (87) 90 Nasal Cannula 2.00 07/30/20 10:00 86 31 135/87 (103) 95 Nasal Cannula 2.00 07/30/20 09:00 67 25 117/73 (88) 95 Nasal Cannula 2.00 07/30/20 08:45 98 Room Air 07/30/20 08:00 95 23 145/97 (113) 94 Nasal Cannula 2.00 07/30/20 07:00 61 8 122/78 (93) 94 Nasal Cannula 2.00 07/30/20 06:50 67 07/30/20 06:00 64 11 140/84 (102) 94 Nasal Cannula 2.00 07/30/20 05:00 62 20 128/82 (97) 96 Nasal Cannula 2.00 07/30/20 04:02 36.6 07/30/20 04:00 64 14 138/83 (101) 97 Nasal Cannula 2.00 07/30/20 03:58 Nasal Cannula 2.00 I & O 07/31/20 07:00 Intake Total 840 ml Output Total 1900 ml Balance -1060 ml Height & Weight Height: 5'10.00" Weight: 185lbs. oz. 83.288725bh; 26.20 BMI Method:Estimated General Appearance: No Apparent Distress, WD/WN, Other (Blood pressure 188/124) Neck: Full Range of Motion, Normal Inspection Respiratory: No Accessory Muscle Use, No Respiratory Distress, Crackles (On the right) Cardiovascular: Regular Rate, Rhythm, Normal Peripheral Pulses Capillary Refill: Less Than 3 Seconds Extremity: Normal Capillary Refill, Normal Inspection Neurologic/Psychiatric: Alert, Oriented x3 Skin: Normal Color, Warm/Dry Results Lab Laboratory Tests 07/29/20 17:33 07/30/20 03:24 Assessment/Plan Assessment/Plan STEMI s/p cath stent in LAD -Possible home today Hx of LOCO -Noncompliant with CPAP therapy Nonsmoker JERSEY ANTON DO Jul 31, 2020 03:52
[2020-07-31 03:56] LABS: BASOPHILS % (AUTO) 0 % (0-10); EOSINOPHILS # (AUTO) 0.1 10^3/uL (0.0-0.3); EOSINOPHILS % (AUTO) 1 % (0-10); HEMATOCRIT 41 % (40-54); LYMPHOCYTES # (AUTO) 0.9 10^3/uL (1.0-4.0); LYMPHOCYTES % (AUTO) 12 % (12-44); MEAN CORPUSCULAR HEMOGLOBIN 30 pg (25-34); MEAN CORPUSCULAR HGB CONC 34 g/dL (32-36); MEAN CORPUSCULAR VOLUME 87 fL (80-99); MEAN PLATELET VOLUME 9.8 fL (9.0-12.2); MONOCYTES # (AUTO) 0.5 10^3/uL (0.0-1.0); MONOCYTES % (AUTO) 6 % (0-12); NEUTROPHILS # (AUTO) 6.2 10^3/uL (1.8-7.8); NEUTROPHILS % (AUTO) 81 % (42-75); PLATELET COUNT 146 10^3/uL (130-400); WHITE BLOOD COUNT 7.6 10^3/uL (4.3-11.0)
[2020-07-31 04:10] LABS: CHLORIDE 103 MMOL/L (98-107); SODIUM 139 MMOL/L (135-145)
[2020-07-31 04:11] LABS: CALCIUM 8.6 MG/DL (8.5-10.1)
[2020-07-31 04:12] LABS: GLUCOSE 94 MG/DL (70-105)
[2020-07-31 04:13] LABS: CARBON DIOXIDE 29 MMOL/L (21-32)
[2020-07-31 04:15] LABS: CREATININE SERUM 1.13 MG/DL (0.60-1.30); GFR ESTIMATED > 60
[2020-07-31 04:16] LABS: BUN/CREATININE RATIO 16
[2020-07-31 04:17] LABS: MAGNESIUM 2.3 MG/DL (1.6-2.4)
[2020-07-31] MEDS ORDERED: METO50TA7 PO (06:47)
[2020-07-31] MEDS ORDERED: ATOR80TA76 PO (06:47)
[2020-07-31] MEDS ORDERED: PANT40TA52 PO (06:47)
[2020-07-31] MEDS ORDERED: ASPI-1238 PO (06:47)
[2020-07-31] MEDS ORDERED: CLOP75TA28 PO (06:47)
--- NOTE | 2020-07-31 06:48 | Discharge Inst-Post CATH ---
Discharge Inst-CATH/EP Problems Reviewed?: Yes Post Cardiac Cath/EP D/C Inst Follow Up/Plan Appointment with Dr Shukla in 2 weeks <b>CARDIAC CATH/EP PROCEDURE DISCHARGE INSTRUCTIONS</b> ACTIVITY * Go Home directly and rest. * Limit activity of the leg (or wrist if it was used) for 7 days including aerobics, swimming, jogging, bicycling, etc. * Restrict stair-climbing for 7 days if possible, if not, climb up with your non-cath leg, then bring together on the same step. * Avoid lifting, pushing, pulling or excessive movement of the affected extremity for 7 days. * Customary sexual activity may be resumed after 2 days-use caution not to use a position that strains or causes pain to the affected extremity. * No driving for 24 hours. * NO SMOKING. * Avoid straining for bowel movements for 7 days. * Gentle walking on level ground is allowed. * Returning to work will depend on the type of procedure and the results. Your doctor will discuss this with you. CALL YOUR DOCTOR FOR ANY OF THE FOLLOWING: *If bleeding from the puncture site occurs- Apply gentle pressure to site with clean cloth and call your doctor or EMS. * If a knot or lump forms under the skin, increases in size, or causes pain. * If bruising appears to be worsening or moving further down your leg instead of disappearing. * Temperature above 101 F. CARE OF YOUR GROIN INCISION; * Bruising or purple discoloration of the skin near the puncture site is common. * You may shower only, no bathtub bathing for 5 days. Be careful to avoid slipping as your leg may feel stiff. * If a closure device was used on your femoral artery, please see the attached guide regarding care of the device and your leg. * Leave dressing on FOR 24 hours. CARE OF YOUR WRIST INCISION; * Bruising or purple discoloration of the skin near the puncture site is common. * You may shower. * DO NOT submerge wrist. * Leave dressing on FOR 24 hours. LANCE SHUKLA MD Jul 31, 2020 06:48
--- NOTE | 2020-07-31 07:12 | Diagnostic Imaging Report ---
Reason for examination: STEMI, post cath. Upright AP portable chest was obtained and compared to yesterday. Cardiac silhouette is stable. No mediastinal widening. No infiltrates, effusions or heart failure. No pneumothorax. Impression: 1. No acute findings in the chest. Dictated by: Dictated on workstation # [id number]
[2020-07-31] MEDS: PANTOPRAZOLE 40 MG (PROTONIX) TAB PO SCH (08:00)
[2020-07-31] MEDS: meTOproloL SUCCINATE 50 MG (TOPROL XL) TAB PO SCH (08:00)
[2020-07-31] MEDS: CLOPIDOGREL 75 MG (PLAVIX) TABLET PO SCH (08:00)
[2020-07-31] MEDS: lisINopril 40 MG (PRINIVIL) TABLET PO SCH (08:00)
[2020-07-31] MEDS: ASPIRIN E.C. 81 MG (ECOTRIN) TAB PO SCH (08:00)
--- NOTE | 2020-07-31 09:07 | Cardiology Discharge Summary ---
Discharge Summary Hospital Course Problems Reviewed?: Yes Hospital Course Date of Admission: Admission Diagnosis : Family Physician/Provider: Palomo Headley MD Date of Discharge: 07/31/20 Discharge Diagnosis: [ acute ST elevation myocardial infarctions Coronary artery disease Malignant hypertension Hyperlipidemia] Hospital Course: [ Acute ST elevation myocardial infarction, status post emergency cardiac catheterization and stenting to the LAD with excellent results. Coronary artery disease status post emergency cardiac catheterization, 1. Acute ST elevation myocardial infarction in the anterior wall with emergency angioplasty and stenting with door to balloon time 66 minutes 2. Total occlusion of the LAD was successful balloon angioplasty then deployment of Jil 2.25 x 23 mm expanded to 2.5 mm with excellent results 3. Large dominant right coronary artery with mild disease nonobstructive disease, mild disease in the circumflex artery 4. Normal left ventricular size, normal contracted 50, anterior wall is bharati normally, EF 60 percent Malignant hypertension, blood pressure is better controlled. Continue to monitor Echocardiogram done showing mild LVH, EF 70-75 percent, mild aortic regurgitation, PA pressure 30-35 mmHg Hyperlipidemia, LDL 110, started on Lipitor BPH Patient is going home today, arrange for follow-up in one to 2 weeks] Labs and Pending Lab Test: Laboratory Tests 07/31/20 03:43: White Blood Count 7.6, Red Blood Count 4.75, Hemoglobin 14.0, Hematocrit 41, Mean Corpuscular Volume 87, Mean Corpuscular Hemoglobin 30, Mean Corpuscular Hemoglobin Concent 34, Red Cell Distribution Width 12.6, Platelet Count 146, Mean Platelet Volume 9.8, Immature Granulocyte % (Auto) 0, Neutrophils (%) (Auto) 81H, Lymphocytes (%) (Auto) 12, Monocytes (%) (Auto) 6, Eosinophils (%) (Auto) 1, Basophils (%) (Auto) 0, Neutrophils # (Auto) 6.2, Lymphocytes # (Auto) 0.9L, Monocytes # (Auto) 0.5, Eosinophils # (Auto) 0.1, Basophils # (Auto) 0.0, Immature Granulocyte # (Auto) 0.0, Sodium Level 139, Potassium Level 4.0, Chloride Level 103, Carbon Dioxide Level 29, Anion Gap 7, Blood Urea Nitrogen 18, Creatinine 1.13, Estimat Glomerular Filtration Rate > 60, BUN/Creatinine Ratio 16, Glucose Level 94, Calcium Level 8.6, Phosphorus Level 4.0, Magnesium L evel 2.3 Microbiology 07/29/20 MRSA Screen - Final, Complete MRSA not isolated Home Meds Active Pantoprazole Sodium 40 Mg Tablet.dr 40 Mg PO DAILY Aspirin EC (Aspirin) 81 Mg Tablet.dr 81 Mg PO DAILY Metoprolol Succinate 50 Mg Tab.er.24h 50 Mg PO DAILY Atorvastatin Calcium 80 Mg Tablet 80 Mg PO HS Clopidogrel (Clopidogrel Bisulfate) 75 Mg Tablet 75 Mg PO DAILY Reported Amlodipine Besylate 5 Mg Tablet 5 Mg PO BID Hydrochlorothiazide 50 Mg Tablet Benazepril HCl 20 Mg Tablet 20 Mg PO BID Allopurinol 300 Mg Tablet Assessment/Pt DC Instructions instructed on taking aspirin and Plavix for a year Arrange for follow-up as an outpatient one to 2 weeks Discharge Diet: Low Sodium Diet Discharge Physical Examination Allergies: Coded Allergies: No Known Drug Allergies (Unverified , 11/11/10) General Appearance: No Apparent Distress, WD/WN HEENT: PERRL/EOMI, TMs Normal, Normal ENT Inspection, Pharynx Normal Respiratory: Chest Non Tender, Lungs Clear, Normal Breath Sounds, No Accessory Muscle Use, No Respiratory Distress Cardiovascular: Regular Rate, Rhythm, No Edema, No Gallop, No JVD, No Murmur Gastrointestinal: Normal Bowel Sounds, No Organomegaly, No Pulsatile Mass, Non Tender Extremity: Normal Capillary Refill, Normal Inspection, Normal Range of Motion, Non Tender Skin: Normal Color, Warm/Dry Neurologic/Psychiatric: Alert, Oriented x3, No Motor/Sensory Deficits LANCE MILES MD Jul 31, 2020 09:07
[2020-07-31 09:47] VITALS: BP 144/80
== END 2020-07-31 09:20 | disposition home or self-care (01) | DRG 247 ==
LOC: EDUNIT# 17:11 → ER 17:13 → CATH 18:10 → ICU 18:10 → CATH 19:28 → ICU 19:28 → CATH 07-31 09:20 → ICU 07-31 09:20
PROVIDERS: ADMIT Internal Medicine Cardiovascular Disease; ATTEND Internal Medicine Cardiovascular Disease
PROC: 027034Z Dilation of Coronary Artery, One Artery with Drug-eluting Intraluminal Device, Percutaneous Approach (ICD-10-PCS; principal; 2020-07-29)
PROC: 4A023N7 Measurement of Cardiac Sampling and Pressure, Left Heart, Percutaneous Approach (ICD-10-PCS; 2020-07-29)
PROC: B2111ZZ Fluoroscopy of Multiple Coronary Arteries using Low Osmolar Contrast (ICD-10-PCS; 2020-07-29)
PROC: B2151ZZ Fluoroscopy of Left Heart using Low Osmolar Contrast (ICD-10-PCS; 2020-07-29)
DX: I21.09 ST elevation (STEMI) myocardial infarction involving other coronary artery of anterior wall (principal); I10 Essential (primary) hypertension; I25.10 Atherosclerotic heart disease of native coronary artery without angina pectoris; E78.5 Hyperlipidemia, unspecified; N40.0 Benign prostatic hyperplasia without lower urinary tract symptoms; I35.1 Nonrheumatic aortic (valve) insufficiency; Z79.82 Long term (current) use of aspirin; Z79.899 Other long term (current) drug therapy; Z20.822 Contact with and (suspected) exposure to COVID-19
CPT/HCPCS: 36415; 71045; 80048; 80053; 80061; 81000; 82010; 83735; 83880; 84100; 84145; 84484; 85025; 87081; 87635; 93005; 93306; 93458; 96374; 96375

== ENCOUNTER 2021-04-11 19:03 | Emergency (ER) | payer MEDICARE, OTHER ==
[~2021-04-11] VITALS: Ht 180 cm; Wt 84.0 kg
[~2021-04-11 19:03] MED LIST changes: +AMLO-250 PO; +ASPI-1238 PO; +ATOR80TA76 PO; +CLOP75TA28 PO; -HYDR50TA3; +HYDR50TA6; +METO50TA7 PO; +PANT40TA52 PO
--- NOTE | 2021-04-11 19:32 | ED EENT ---
History of Present Illness General Chief Complaint: Nasal Problems Stated Complaint: NOSE BLEED Nursing Triage Note: PT STATES HAVING A NOSE BLEED FOR ABOUT 30 MIN, HX OF THIS HAPPENING IN THE PAST. History of Present Illness Date Seen by Provider: Apr 11, 2021 Time Seen by Provider: 19:28 Initial Comments Patient is a 80-year-old male who presents ED with right nosebleed. Patient states he was rubbing his right sided nose 30 to 45 minutes ago and started having a profuse nosebleed. Not able control with direct pressure. Nosebleed 3 days ago was able to stop at home. He states he was blown his nose at the time that resulted in a nosebleed. Patient is currently on anticoagulant. Reports history of hypertension. Currently manageable. Denies any trauma, headache, dizziness, vomiting. Patient with active nosebleed on arrival. Rhino Rocket was used immediately secondary to the severe nosebleed. Location: nose Allergies and Home Medications Allergies Coded Allergies: No Known Drug Allergies (Unverified , 11/11/10) Patient Home Medication List Allopurinol (Allopurinol) 300 Mg Tablet, (Reported) Entered as Reported by: ANAMARIA NICOLE on 11/05/162132 Amlodipine Besylate (Amlodipine Besylate) 5 Mg Tablet, 5 MG PO BID, (Reported) Entered as Reported by: AYAKA GUEVARA on 07/29/20 174 Aspirin (Aspirin EC) 81 Mg Tablet.dr, 81 MG PO DAILY Prescribed by: LANCE MILES on 07/31/20646 Atorvastatin Calcium (Atorvastatin Calcium) 80 Mg Tablet, 80 MG PO HS Prescribed by: LANCE MILES on 07/31/20646 Benazepril HCl (Benazepril HCl) 20 Mg Tablet, 20 MG PO BID, (Reported) Entered as Reported by: ANAMARIA NICOLE on 11/05/162132 Clopidogrel Bisulfate (Clopidogrel) 75 Mg Tablet, 75 MG PO DAILY Prescribed by: LANCE MILES on 07/31/20646 Hydrochlorothiazide (Hydrochlorothiazide) 50 Mg Tablet, (Reported) Entered as Reported by: ANAMARIA NICOLE on 11/05/162132 Metoprolol Succinate (Metoprolol Succinate) 50 Mg Tab.er.24h, 50 MG PO DAILY Prescribed by: LANCE MILES on 2/2/21 0647 Pantoprazole Sodium (Pantoprazole Sodium) 40 Mg Tablet.dr, 40 MG PO DAILY Prescribed by: LANCE MILES on 07/31/20 0647 Review of Systems Review of Systems Constitutional: No no symptoms reported Eyes: Denies No Symptoms Reported Nose: epistaxis Mouth: clots Throat: see HPI Respiratory: see HPI Cardiovascular: no symptoms reported, see HPI; No chest pain Gastrointestinal: No no symptoms reported, No abdominal pain, No constipation, No diarrhea Musculoskeletal: No see HPI, No back pain, No gout All Other Systems Reviewed Negative Unless Noted: Yes Past Kyafxbl-Srlviy-Qgljkg Hx Patient Social History Smoking Status: Never a Smoker Substance use?: No Alcohol Use?: No Immunizations Up To Date Second COVID19 Vaccination Oswaldo: 09/2020 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 oz. 83.243767sg; 25.00 BMI Method:Estimated General Appearance: WD/WN, no apparent distress Eyes: bilateral eye normal inspection, bilateral eye PERRL, bilateral eye EOMI Ears: bilateral ear auricle normal, bilateral ear canal normal Nose: active bleeding, other (Right naris active anteriorly bleed) Neck: non-tender, full range of motion, supple Cardiovascular: normal peripheral pulses, regular rate, rhythm, no edema Respiratory: chest non-tender, lungs clear, normal breath sounds Gastrointestinal: normal bowel sounds, non tender, soft Skin: normal color, warm/dry, cyanosis Progress/Results/Core Measures Results/Orders Vital Signs/I&O 04/11/21 19:10 Temp 36.1 Pulse 85 Resp 20 B/P (MAP) 173/101 (125) Pulse Ox 94 O2 Delivery Room Air Blood Pressure Mean: 125 Departure Impression Primary Impression: Epistaxis Disposition: HOME, SELF-CARE Condition: Improved Departure-Patient Inst. Decision time for Depature: 20:04 Referrals: DOMINIK CORNEJO MD, CHAD C MD (PCP/Family) Primary Care Physician Patient Instructions: Nosebleeds (DC) Add. Discharge Instructions: Recommend following up with ENT for removal of packing in 2 to 3 days. Augmentin prophylactically. All discharge instructions reviewed with patient and/or family. Voiced understanding. Scripts Amoxicillin/Potassium Clav (Augmentin 875-125 Tablet) 1 Each Tablet 1 EACH PO BID, #14 TAB Prov: MARIELA BARTON 04/11/21 MARIELA BARTON Apr 11, 2021 19:32
[2021-04-11] MEDS ORDERED: AMOX-358 PO (20:06)
[2021-04-11 20:29] VITALS: BP 163/109
== END 2021-04-11 20:29 | disposition home or self-care (01) ==
LOC: EDUNIT# 19:03 → ER 19:05
DX: R04.0 Epistaxis (principal); I10 Essential (primary) hypertension; Z79.82 Long term (current) use of aspirin; Z79.01 Long term (current) use of anticoagulants; Z79.899 Other long term (current) drug therapy
CPT/HCPCS: 30901

== ENCOUNTER 2021-06-26 09:48 | Outpatient (RCR) | payer MEDICARE, OTHER ==
[~2021-06-26 09:48] MED LIST changes: +AMOX-358 PO; +BENA-3 PO; -BENA20TA7 PO
== END 2021-06-28 | disposition home or self-care (01) ==
LOC: CR 09:48
PROVIDERS: ATTEND Internal Medicine Cardiovascular Disease
DX: I25.2 Old myocardial infarction (principal); Z95.5 Presence of coronary angioplasty implant and graft
CPT/HCPCS: 93798

== ENCOUNTER → 2021-07-29 | Outpatient (RCR) | payer MEDICARE, OTHER | END | disposition home or self-care (01) | LOC: CR 07-01 10:22 | PROVIDERS: ATTEND Internal Medicine Cardiovascular Disease | DX: Z29.8 Encounter for other specified prophylactic measures (principal) | CPT/HCPCS: 93798 ==

== ENCOUNTER 2021-08-12 09:46 | Outpatient (RCR) | payer MEDICARE, OTHER | END 2021-08-26 | disposition home or self-care (01) | LOC: CR 09:46 | PROVIDERS: ATTEND Internal Medicine Cardiovascular Disease | DX: Z29.8 Encounter for other specified prophylactic measures (principal) | CPT/HCPCS: 93798 ==

== ENCOUNTER → 2022-01-31 | Outpatient (CLI) | payer MEDICARE, OTHER | LOC: CARD 12:00 | PROVIDERS: ATTEND Internal Medicine Cardiovascular Disease | DX: I11.9 Hypertensive heart disease without heart failure (principal); I35.1 Nonrheumatic aortic (valve) insufficiency; I25.3 Aneurysm of heart | CPT/HCPCS: 93306 ==

== ENCOUNTER → 2022-03-19 | Outpatient (CLI) | payer MEDICARE, OTHER ==
--- NOTE | 2022-03-19 15:50 | Diagnostic Imaging Report ---
PROCEDURE: US renal bilateral. TECHNIQUE: Multiple real-time grayscale images were obtained over the kidneys in various projections, bilaterally. INDICATION: BPH with urinary frequency. Right kidney measures 10.6 x 6.1 x 5.1 cm and the left kidney measures 11.1 x 6.0 x 6.0 cm. There is a cyst in the right kidney measuring approximately 2.1 cm in diameter. Cyst in the lower pole left kidney is approximately 1.7 cm in diameter. Both kidneys do contain some echogenic foci and the possibility of nonobstructing calculi cannot be entirely excluded. There is no hydronephrosis. Bladder volume is 462 mL. Postvoid volume is 315 mL. Bilateral ureteral jets were visualized. IMPRESSION: 1. Bilateral renal cysts. No hydronephrosis is seen. 2. Echogenic foci of bilateral kidneys, perhaps on the basis of nonobstructing calculi. Dictated by: Dictated on workstation # [id number]
== END ==
LOC: RAD 12:17
PROVIDERS: ATTEND Specialist
DX: N28.1 Cyst of kidney, acquired (principal); N40.1 Benign prostatic hyperplasia with lower urinary tract symptoms
CPT/HCPCS: 76770

== ENCOUNTER 2023-06-02 20:57 | Inpatient (IN) | payer MEDICARE, OTHER ==
[~2023-06-02] VITALS: Ht 180.3 cm; Wt 89.1 kg
[~2023-06-02 20:57] MED LIST changes: -ALLO300T2 PO; -ASCO-262 PO; -ATOR40TA70 PO; -CHOL20002 PO; -DOXY100C5 PO; -FINA5TAB6 PO; -FURO20TA4 PO; -MULT-1136 PO; -NEBI10TA11 PO; -TMSL.4C PO; -VITA400T9 PO
--- NOTE | 2023-06-02 21:11 | ED General ---
General Chief Complaint: Fever-Adult/Adol Stated Complaint: FEVER 102, INFECTION Source of Information: Patient, Other (SON) History of Present Illness Date Seen by Provider: Jun 02, 2023 Time Seen by Provider: 21:03 Initial Comments PT ARRIVES VIA POV FROM HOME WITH SON, NEEDS WHEELCHAIR ON ARRIVAL C/O LEFT TESTICULAR PAIN AND SWELLING FOR THE LAST COUPLE OF DAYS HAS HAD FEVER UP TO 102-103 TODAY--TOOK TYLENOL AT [address] DANII MAGAÑA TODAY FOR THIS PROBLEM AND WAS GIVEN RX FOR AN ANTIBIOTIC --DOXYCYCLINE, AND HAD OUTPATIENT TESTICULAR ULTRASOUND DONE TODAY WHICH SHOWED EPIDIDYMO-ORCHITIS. NO ABSCESS CAME IN TONIGHT FOR CONTINUED FEVER DENIES ABDOMINAL PAIN OR NEW BACK PAIN PT HAS HAD SOME NAUSEA THE LAST COUPLE OF DAYS, BUT NO VOMITING PT HAS HAD ONGOING DIFFICULTY URINATING AND PAIN/BURNING ON URINATION FOR A LONG TIME--NO DIFFERENT TODAY PT WAS SEEN AT UROLOGY LAST WEEK TO BE EVALUATED FOR POSSIBLE PROSTATE SURGERY FOR ENLARGED PROSTATE. PT STATES HE DOES NOT HAVE PROSTATE CANCER. HE HAD LABWORK DONE, AND TESTS TO SEE HOW MUCH FLUID WAS IN HIS BLADDER. THEY WERE UNABLE TO PASS A CATHETER AT THAT TIME. PT HAS HISTORY OF HTN, HYPERLIPIDEMIA, STEMI 2020 WITH STENT PLACEMENT. HE IS ONLY ON ASPIRIN NOW. PLAVIX HAD BEEN STOPPED DUE TO NOSEBLEEDS. PT IS NOT DIABETIC. PCP: DR. DANII MAGAÑA CARDIOPULMONARY TECHNOLOGIST: DR. MILES Allergies and Home Medications Allergies Coded Allergies: No Known Drug Allergies (Unverified , 11/11/10) Patient Home Medication List Home Medication List Reviewed: Yes Allopurinol (Allopurinol) 300 Mg Tablet, (Reported) Entered as Reported by: ANAMARIA NICOLE on 11/05/162132 Amlodipine Besylate (Amlodipine Besylate) 5 Mg Tablet, 5 MG PO BID, (Reported) Entered as Reported by: AYAKA STANLEY on 07/29/20 174 Amoxicillin/Potassium Clav (Augmentin 875-125 Tablet) 1 Each Tablet, 1 EACH PO BID Prescribed by: MICHELLE VENEGAS on 04/11/212005 Aspirin (Aspirin EC) 81 Mg Tablet., 81 MG PO DAILY Prescribed by: LANCE MILES on 07/31/20 0647 Atorvastatin Calcium (Atorvastatin Calcium) 80 Mg Tablet, 80 MG PO HS Prescribed by: LANCE MILES on 07/31/20646 Benazepril HCl (Benazepril HCl) 20 Mg Tablet, 20 MG PO BID, (Reported) Entered as Reported by: ANAMARIA NICOLE on 11/05/162132 Clopidogrel Bisulfate (Clopidogrel) 75 Mg Tablet, 75 MG PO DAILY Prescribed by: LANCE MILES on 07/31/20646 Hydrochlorothiazide (Hydrochlorothiazide) 50 Mg Tablet, (Reported) Entered as Reported by: ANAMARIA NICOLE on 11/05/162132 Metoprolol Succinate (Metoprolol Succinate) 50 Mg Tab.er.24h, 50 MG PO DAILY Prescribed by: LANCE MILES on 07/31/20646 Pantoprazole Sodium (Pantoprazole Sodium) 40 Mg Tablet.dr, 40 MG PO DAILY Prescribed by: LANCE MILES on 07/31/20646 Review of Systems Review of Systems Constitutional: see HPI, fever, malaise, weakness EENTM: no symptoms reported Respiratory: no symptoms reported Cardiovascular: no symptoms reported Gastrointestinal: no symptoms reported Genitourinary: see HPI Musculoskeletal: no symptoms reported Skin: no symptoms reported Psychiatric/Neurological: No Symptoms Reported Hematologic/Lymphatic: No Symptoms Reported Immunological/Allergic: no symptoms reported Past Cpgaupr-Huaqqz-Cylafj Hx Immunizations Up To Date Second COVID19 Vaccination Oswaldo: 09/2020 Seasonal Allergies Seasonal Allergies: No Past Medical History Surgeries: Yes (GROWTH OFF LEFT OUTSIDE ABD) Adenoidectomy, Cardiac, Coronary Stent, Tonsillectomy Respiratory: No Cardiac: Yes (STEMI WITH STENT 2020) Coronary Artery Disease, Heart Attack, High Cholesterol, Hypertension Neurological: No Genitourinary: Yes Prostate Problems Gastrointestinal: No Musculoskeletal: No Endocrine: No HEENT: No Cancer: No Psychosocial: No Integumentary: No Blood Disorders: No Family Medical History CARDIAC CATH 07/29/[address] MILES: CONCLUSION: 1. Acute ST elevation myocardial infarction in the anterior wall with emergency angioplasty and stenting with door to balloon time 66 minutes 2. Total occlusion of the LAD was successful balloon angioplasty then deployment of Jil 2.25 x 23 mm expanded to 2.5 mm with excellent results 3. Large dominant right coronary artery with mild disease nonobstructive disease, mild disease in the circumflex artery 4. Normal left ventricular size, normal contracted 50, anterior wall is bharati normally, EF 60 percent 5. Malignant hypertension, patient was started on nitroglycerin drip Physical Exam Vital Signs Vital Signs - First Documented 06/02/23 06/02/23 21:04 21:20 Temp 36.9 Pulse 94 Resp 18 B/P (MAP) 141/81 (101) Pulse Ox 94 O2 Delivery Room Air O2 Flow Rate 2.00 Capillary Refill : Height, Weight, BMI Height: 5'10.00" Weight: 185lbs. oz. 83.807670tk; 25.00 BMI Method:Estimated General Appearance: No Apparent Distress, WD/WN, Other (GENERALIZED WEAKNESS. ABLE TO STAND AND TRANSFER ON OWN FROM WHEELCHAIR TO ER COT) HEENT: PERRL/EOMI Neck: Normal Inspection Respiratory: Normal Breath Sounds, No Accessory Muscle Use, No Respiratory Distress Cardiovascular: Regular Rate, Rhythm, No Edema, No JVD, No Murmur, Normal Peripheral Pulses Gastrointestinal: Non Tender, Soft Genital/Rectal: Other (LEFT TESTICLE/SCROTUM WITH SIGNIFICANT SWELLING, ERYTHEMA, AND TENDERNESS. ) Back: No CVA Tenderness Extremity: Normal Inspection Neurologic/Psychiatric: Alert, Oriented x3, No Motor/Sensory Deficits, Normal Mood/Affect, bus cleaner II-XII Norm as Tested Skin: Normal Color, Warm/Dry Focused Exam Lactate Level 06/02/23 21:12: Lactic Acid Level 1.52 Respiratory: Normal Breath Sounds, No Accessory Muscle Use, No Respiratory Distress Cardiovascular: Regular Rate, Rhythm, No Murmur Skin: normal color, warm/dry Lactic Acid Level Laboratory Tests Test 06/02/23 21:12 Lactic Acid Level 1.52 MMOL/L (0.50-2.00) Within 3hrs of presentation: Admin fluids, Admin ABX, Blood cultures prior to ABX's, Focus exam, Lactate level Progress/Results/Core Measures Suspected Sepsis SIRS Temperature: Pulse: Respiratory Rate: Laboratory Tests 06/02/23 21:12: White Blood Count 21.5H Blood Pressure / Mean: 06/02/23 21:12: Lactic Acid Level 1.52 Laboratory Tests 06/02/23 21:12: Creatinine 1.06, INR Comment 1.1, Platelet Count 150, Total Bilirubin 1.6H Results/Orders Lab Results Laboratory Tests Test 06/02/23 21:12 06/02/23 21:42 06/02/23 22:40 Range/Units White Blood Count 21.5 H 4.3-11.0 10^3/uL Red Blood Count 4.77 4.30-5.52 10^6/uL Hemoglobin 14.6 13.3-17.7 g/dL Hematocrit 42 40-54 % Mean Corpuscular Volume 89 80-99 fL Mean Corpuscular Hemoglobin 31 25-34 pg Mean Corpuscular Hemoglobin Concent 34 32-36 g/dL Red Cell Distribution Width 13.0 10.0-14.5 % Platelet Count 150 130-400 10^3/uL Mean Platelet Volume 10.4 9.0-12.2 fL Immature Granulocyte % (Auto) 1 % Neutrophils (%) (Auto) 91 H 42-75 % Lymphocytes (%) (Auto) 1 L 12-44 % Monocytes (%) (Auto) 6 0-12 % Eosinophils (%) (Auto) 0 0-10 % Basophils (%) (Auto) 0 0-10 % Neutrophils # (Auto) 19.6 H 1.8-7.8 10^3/uL Lymphocytes # (Auto) 0.3 L 1.0-4.0 10^3/uL Monocytes # (Auto) 1.3 H 0.0-1.0 10^3/uL Eosinophils # (Auto) 0.0 0.0-0.3 10^3/uL Basophils # (Auto) 0.1 0.0-0.1 10^3/uL Immature Granulocyte # (Auto) 0.2 H 0.0-0.1 10^3/uL Neutrophils % (Manual) 88 % Lymphocytes % (Manual) 6 % Monocytes % (Manual) 3 % Band Neutrophils 3 % Blood Morphology Comment NORMAL Prothrombin Time 14.7 12.2-14.7 SEC INR Comment 1.1 0.8-1.4 Activated Partial Thromboplast Time 35 24-35 SEC Sodium Level 132 L 135-145 MMOL/L Potassium Level 3.4 L 3.6-5.0 MMOL/L Chloride Level 97 L 98-107 MMOL/L Carbon Dioxide Level 23 21-32 MMOL/L Anion Gap 12 5-14 MMOL/L Blood Urea Nitrogen 22 H 7-18 MG/DL Creatinine 1.06 0.60-1.30 MG/DL Estimat Glomerular Filtration Rate 70 BUN/Creatinine Ratio 21 Glucose Level 121 H 70-105 MG/DL Lactic Acid Level 1.52 0.50-2.00 MMOL/L Calcium Level 9.0 8.5-10.1 MG/DL Corrected Calcium 9.2 8.5-10.1 MG/DL Magnesium Level 2.0 1.6-2.4 MG/DL Total Bilirubin 1.6 H 0.1-1.0 MG/DL Aspartate Amino Transf (AST/SGOT) 193 H 5-34 U/L Alanine Aminotransferase (ALT/SGPT) 151 H 0-55 U/L Alkaline Phosphatase 141 H 40-136 U/L Total Protein 7.0 6.4-8.2 GM/DL Albumin 3.7 3.2-4.5 GM/DL Amylase Level 91 25-125 U/L Lipase 87 H 8-78 U/L Erythrocyte Sedimentation Rate 20 0-30 MM/HR C-Reactive Protein High Sensitivity 23.67 H 0.00-0.50 MG/DL Influenza Type A (RT-PCR) Not Detected Not Detecte Influenza Type B (RT-PCR) Not Detected Not Detecte SARS-CoV-2 RNA (RT-PCR) Not Detected Not Detecte My Orders Orders - RUPA ESPOSITO DO Ed Iv/Invasive Line Start (06/02/23 21:02) Monitor-Rhythm Ecg Trace Only (06/02/23 21:02) Chest 1 View, Ap/Pa Only (06/02/23 21:02) Covid 19 Inhouse Test (06/02/23 21:02) Cbc And Automated Diff (06/02/23 21:02) Comprehensive Metabolic Panel (06/02/23 21:02) Blood Culture (06/02/23 21:02) Sputum Culture (06/02/23 21:02) Urinalysis (06/02/23 21:02) Urine Culture (06/02/23 21:02) Protime With Inr (06/02/23 21:02) Partial Thromboplastin Time (06/02/23 21:02) Ed Iv/Invasive Line Start (06/02/23 21:02) Ed Iv/Invasive Line Start (06/02/23 21:02) Vital Signs Adult Sepsis Patie Q15M (06/02/23 21:02) O2 (06/02/23 21:02) Remove Rings In Anticipation O (06/02/23 21:02) Lactic Acid Analyzer (06/02/23 21:02) Cefepime Injection (Cefepime Injection) (06/02/23 21:15) Influenza A And B By Pcr (06/02/23 21:02) Magnesium (06/02/23 21:02) Piperacillin/Tazobactam (Piperacillin/Ta (06/02/23 21:15) Fentanyl Injection (Fentanyl Injection (06/02/23 21:15) Manual Differential (06/02/23 21:12) Hs C Reactive Protein (06/02/23 21:39) Erythrocyte Sedimentation Rate (06/02/23 21:39) Amylase (06/02/23 21:45) Lipase (06/02/23 21:45) Ct Chest/Abdomen/Pelvis W (06/02/23 21:45) Ed Admission (Communication) (06/02/23 22:28) Iohexol Injection (Omnipaque 350 Mg/Ml 1 (06/02/23 22:30) Received Contrast (Hold Metformin- Contr (06/02/23 22:30) Sodium Chloride Flush (Catheter Flush Sy (06/02/23 22:30) Ns (Ivpb) 100 Ml (Sodium Chloride 0.9% 1 (06/02/23 22:30) Ed Iv/Invasive Line Start (06/02/23 23:07) Lactated Ringers 1,000 Ml (Lactated Ring (06/02/23 23:15) Medications Given in ED Current Medications Medications Dose Ordered Sig/Chelo Route Start Time Stop Time Status Last Admin Dose Admin Fentanyl Citrate 50 mcg ONCE ONCE IVP 06/02/23 21:15 06/02/23 21:16 DC 06/02/23 21:20 50 MCG Iohexol 100 ml ONCE ONCE IV 06/02/23 22:30 06/02/23 22:31 DC 06/02/23 22:31 80 ML Piperacillin Sod/ Tazobactam Sod 4.5 gm/Sodium Chloride 100 ml @ 200 mls/hr ONCE ONCE IV 06/02/23 21:15 06/02/23 21:44 DC 06/02/23 21:20 200 MLS/HR Sodium Chloride 10 ml NEEDED PRN IV 06/02/23 22:30 06/02/23 22:31 10 ML Sodium Chloride 100 ml ONCE ONCE IV 06/02/23 22:30 06/02/23 22:31 DC 06/02/23 22:31 80 ML Vital Signs/I&O 06/02/23 06/02/23 21:04 21:20 Temp 36.9 Pulse 94 Resp 18 B/P (MAP) 141/81 (101) Pulse Ox 94 94 O2 Delivery Room Air Nasal Cannula O2 Flow Rate 2.00 Capillary Refill : Progress Note : Progress Note VITALS ON ARRIVAL: TEMP 36.9, HR 94, RR 18, BP 141/81, O2 SAT 94% ON ROOM AIR GIVEN: -IV FLUIDS -ZOSYN -FENTANYL LABS: -CBC WBC 21.5, HGB 14.6, PLT 150,000 -CMP NA 132, K 3.4, BUN 22, CR 1.06, GLU 121, BILI 1.6, AST 193, ALT 151, ALK PHOS 141 -AMYLASE 91, LIPASE 87 -MG 2.0 -LACTIC ACID 1.52 -CRP 23.67 -SED RATE 20 -PT 14.7, PTT 35, INR 1.1 -UA--NO URINE SPECIMEN OBTAINED IN ER -COVID/FLU NEGATIVE REVIEWED SCROTAL ULTRASOUND DONE EARLIER TODAY SHOWING EPIDIDYMO-ORCHITIS, WITHOUT ABSCESS. CXR IS UNREMARKABLE CT CHEST/ABDOMEN/PELVIS WITH REACTIVE CHANGES IN LEFT INGUINAL CANAL AND SCROTUM, RIGHT KIDNEY WITH SOFT TISSUE CORTICAL LESION AND RIGHT ADRENAL SOFT TISSUE MASS, URINARY BLADDER WALL THICKENING NO DETERIORATION IN PT'S CONDITION DURING ER STAY DISCUSSED TEST RESULTS, NEED FOR ADMIT AND PT IS AGREEABLE TO PLAN REVIEWED PRIOR RECORDS INCLUDING ER VISITS, ADMITS/H&P'S/CONSULTS/DISCHARGE SUMMARIES, TESTS/PROCEDURES Diagnostic Imaging Comments SCROTAL ULTRASOUND DONE EARLIER TODAY: FINDINGS: The right testicle measured 6.0 x 3.1 x 3.4 cm. The right testicle contains color flow. The right epididymis shows a couple of tiny cysts, the largest measuring 1.6 x 0.5 cm. There is a minimal right hydrocele. The left testicle measured 5.8 x 3.9 x 3.5 cm and appeared hypervascular, suggesting orchitis. There is no discrete mass. There is a moderate-sized left hydrocele. There is a small left epididymal cyst measuring 6 mm. The left epididymis appears enlarged and hypervascular compatible with epididymitis. IMPRESSION: Hypervascular right testicle and enlarged hypervascular epididymis, compatible with epididymitis and orchitis on the left side. There is no testicular mass or torsion. There is color flow preserved. There are small hydroceles. There are small epididymal head cysts on both sides. CXR--PER RADIOLOGIST REPORT: FINDINGS: There is cardiomegaly. Mild prominence of the perihilar regions right worse than left. Mild infiltrate in the right infrahilar region not excluded. There are no effusions. There is no pneumothorax. IMPRESSION: 1. Possible mild right infrahilar infiltrate with a prominence in the adjacent perihilar region noted. 2. Cardiomegaly. CT CHEST/ABDOMEN/PELVIS--PER [facility] VIA FAX AT 0025 -NO ACUTE INTRA-THORACIC ABNORMALITY -NO PLEURAL EFFUSION OR PNEUMOTHORAX -BIBASILAR ATELECTASIS -BORDERLINE CARDIOMEGALY, TRACE PERICARDIAL FLUID, ENLARGED MAIN PULMONARY ARTERY 4.2 CM -URINARY BLADDER WALL THICKENING WITH PERIVESICULAR STRANDING, MAY REFLECT CYSTITIS -NO HYDRONEPHROSIS OR RENAL CALCULUS -RIGHT KIDNEY LOWER POLE WITH 2.2 CM SOFT TISSUE CORTICAL LESION -RIGHT ADRENAL 2.6 CM SOFT TISSUE MASS -HEPATIC STEATOSIS -SUSPECTED REACTIVE CHANGES IN LEFT INGUINAL CANAL AND SCROTUM SECONDARY TO REPORTED EPIDIDYMITIS. -NO BOWEL OBSTRUCTION OR INFLAMMATION -NORMAL APPENDIX Reviewed: Reviewed by Me Departure Communication (Admissions) 0300--SPOKE WITH DR. VARGAS, HOSPITALIST, ACCEPTS PT FOR ADMIT. SHE WILL DO ADMIT ORDERS AND CONSULT UROLOGY IN AM Impression Primary Impression: Sepsis Additional Impressions: LEFT EPIDIDYMO-ORCHITIS CAD WITH HX OF [place] AND STENT HTN (hypertension) Elevated liver enzymes Right renal mass Right adrenal mass Enlarged prostate Disposition: ADMITTED INPATIENT Condition: Stable Admissions Decision to Admit Reason: Admit from ER (General) Decision to Admit/Date: Jun 02, 2023 Time/Decision to Admit Time: 22:15 Departure-Patient Inst. Referrals: DANII MAGAÑA MD (PCP/Family) Primary Care Physician RUPA ESPOSITO DO Jun 02, 2023 21:11
[2023-06-02] MEDS ORDERED: PIPERACILLIN/Tazobactam 4.5 GM in NS (IVPB) 100 ML 100 ML IV ONE (21:15)
[2023-06-02] MEDS ORDERED: CEFEPIME INJECTION 1,000 MG in NS (IVPB) 50 ML 50 ML IV ONE (21:15)
[2023-06-02] MEDS ORDERED: fentaNYL INJECTION 100 MCG/2 ML VIAL IVP ONE (21:15)
[2023-06-02 21:23] LABS: BASOPHILS # (AUTO) 0.1 10^3/uL (0.0-0.1); BASOPHILS % (AUTO) 0 % (0-10); EOSINOPHILS % (AUTO) 0 % (0-10); HEMATOCRIT 42 % (40-54); HEMOGLOBIN 14.6 g/dL (13.3-17.7); LYMPHOCYTES # (AUTO) 0.3 10^3/uL (1.0-4.0); LYMPHOCYTES % (AUTO) 1 % (12-44); MEAN CORPUSCULAR HEMOGLOBIN 31 pg (25-34); MEAN CORPUSCULAR HGB CONC 34 g/dL (32-36); MEAN CORPUSCULAR VOLUME 89 fL (80-99); MEAN PLATELET VOLUME 10.4 fL (9.0-12.2); MONOCYTES # (AUTO) 1.3 10^3/uL (0.0-1.0); MONOCYTES % (AUTO) 6 % (0-12); NEUTROPHILS # (AUTO) 19.6 10^3/uL (1.8-7.8); NEUTROPHILS % (AUTO) 91 % (42-75); PLATELET COUNT 150 10^3/uL (130-400); WHITE BLOOD COUNT 21.5 10^3/uL (4.3-11.0)
[2023-06-02 21:34] LABS: INR 1.1 (0.8-1.4); PROTHROMBIN TIME PATIENT 14.7 SEC (12.2-14.7)
[2023-06-02 21:44] LABS: ALBUMIN 3.7 GM/DL (3.2-4.5); BILIRUBIN,TOTAL 1.6 MG/DL (0.1-1.0); CREATININE SERUM 1.06 MG/DL (0.60-1.30); POTASSIUM 3.4 MMOL/L (3.6-5.0)
--- NOTE | 2023-06-02 21:48 | Diagnostic Imaging Report ---
INDICATION: Fever EXAMINATION: Chest 06/02/2023 COMPARISON: 07/31/2020 FINDINGS: There is cardiomegaly. Mild prominence of the perihilar regions right worse than left. Mild infiltrate in the right infrahilar region not excluded. There are no effusions. There is no pneumothorax. IMPRESSION: 1. Possible mild right infrahilar infiltrate with a prominence in the adjacent perihilar region noted. 2. Cardiomegaly. Dictated by: Dictated on workstation # [id number]
[2023-06-02 22:03] LABS: AMYLASE 91 U/L (25-125)
[2023-06-02 22:04] LABS: LIPASE 87 U/L (8-78)
[2023-06-02 22:09] LABS: BAND NEUTROPHILS 3 %; LYMPHOCYTES % (MANUAL) 6 %; MONOCYTES % (MANUAL) 3 %; NEUTROPHILS % (MANUAL) 88 %; RBC MORPH NORMAL
[2023-06-02] MEDS ORDERED: IOHEXOL 350 MG/ML 100 ML (OMNIPAQUE 350) VIAL IV ONE (22:30)
[2023-06-02] MEDS ORDERED: HOLD METFORMIN - RECEIVED CONTRAST 20 ML VIAL IV SCH (22:30)
[2023-06-02] MEDS ORDERED: CATHETER FLUSH 10 ML SYR IV PRN (22:30)
[2023-06-02] MEDS ORDERED: NS 100 ML (IVPB) BAG IV ONE (22:30)
[2023-06-02] MEDS ORDERED: LACTATED RINGERS 1,000 ML 1,000 ML IV ONE (23:15)
[2023-06-02] MEDS ORDERED: MELATONIN 3 MG TABLET PO PRN (23:30)
[2023-06-02] MEDS ORDERED: ACETAMINOPHEN 325 MG TABLET PO PRN (23:30)
[2023-06-02] MEDS ORDERED: diphenhydrAMINE 25 MG TABLET PO PRN (23:30)
[2023-06-02] MEDS ORDERED: VANCOMYCIN INJECTION 0.1 MG in NS (IVPB) 250 ML 250 ML IV SCH (23:30)
[2023-06-02] MEDS ORDERED: oxyCODONE IMMEDIATE RELEASE 5 MG TABLET PO PRN (23:30)
[2023-06-02] MEDS ORDERED: CALCIUM CARBONATE 500 MG CHEW TABLET PO PRN (23:30)
[2023-06-02] MEDS ORDERED: diphenhydrAMINE INJ 50 MG/ML VIAL IVP PRN (23:30)
[2023-06-02] MEDS ORDERED: BISACODYL 10 MG SUPPOSITORY PR PRN (23:30)
[2023-06-02] MEDS ORDERED: LACTULOSE SYRUP 10GM/15ML 30ML UDC PO PRN (23:30)
[2023-06-02] MEDS ORDERED: ONDANSETRON INJECTION 4 MG/2 ML (SDV) IV PRN (23:30)
[2023-06-02] MEDS ORDERED: ONDANSETRON 4 MG ORAL DISSOLVE TABLET PO PRN (23:30)
[2023-06-02] MEDS ORDERED: MILK OF MAGNESIA 400 MG/5 ML 30 ML UDC PO PRN (23:30)
[2023-06-02] MEDS ORDERED: HYDROmorphone INJECTION 2 MG/ML VIAL IV PRN (23:30)
[2023-06-02] MEDS ORDERED: ANTACID SUSPENSION 30 ML UDC PO PRN (23:30)
[2023-06-02 23:40] VITALS: BP 141/69
[2023-06-02] MEDS ORDERED: VANCOMYCIN 1 GM/NS 250 ML IVPB IV ONE ×2 (23:45)
[2023-06-03] VITALS (7 sets, daily range): BP systolic 121–147; BP diastolic 62–85
[2023-06-03] MEDS: NS IV 1000 ML 1,000 ML IV SCH ×2 (00:32→12:01)
[2023-06-03] MEDS: ENOXAPARIN 40 MG/0.4 ML SYRINGE SC SCH ×2 (00:32→23:19)
[2023-06-03] MEDS ORDERED: VANCOMYCIN 750 MG/NS 250 ML IVPB IV ONE ×2 (01:00)
[2023-06-03 01:06] LABS: AMORPHOUS SEDIMENT,UR RARE AMOR URATES /LPF; BACTERIA,URINE FEW /HPF; BILIRUBIN,URINE NEGATIVE (NEGATIVE); CLARITY,URINE CLEAR; COLOR,URINE YELLOW; GLUCOSE, URINE (UA) NEGATIVE (NEGATIVE); KETONES,URINE NEGATIVE (NEGATIVE); LEUKOCYTE ESTERASE ,URINE TRACE (NEGATIVE); NITRITE,URINE NEGATIVE (NEGATIVE); PH,URINE 5.5 (5-9); PROTEIN,URINE 2+ (NEGATIVE); RBC,URINE 0-2 /HPF; SQUAMOUS EPITHELIAL CELL,UR 0-2 /HPF
[2023-06-03] MEDS: PIPERACILLIN/Tazobactam 4.5 GM in NS (IVPB) 100 ML 100 ML IV SCH ×3 (04:02→19:48)
[2023-06-03 05:42] LABS: HEMOGLOBIN 12.4 g/dL (13.3-17.7)
[2023-06-03 05:44] LABS: BASOPHILS # (AUTO) 0.1 10^3/uL (0.0-0.1); BASOPHILS % (AUTO) 0 % (0-10); EOSINOPHILS % (AUTO) 0 % (0-10); HEMATOCRIT 36 % (40-54); LYMPHOCYTES # (AUTO) 0.5 10^3/uL (1.0-4.0); LYMPHOCYTES % (AUTO) 3 % (12-44); MEAN CORPUSCULAR HEMOGLOBIN 31 pg (25-34); MEAN CORPUSCULAR HGB CONC 34 g/dL (32-36); MEAN CORPUSCULAR VOLUME 90 fL (80-99); MEAN PLATELET VOLUME 10.6 fL (9.0-12.2); MONOCYTES # (AUTO) 1.1 10^3/uL (0.0-1.0); MONOCYTES % (AUTO) 6 % (0-12); NEUTROPHILS # (AUTO) 17.3 10^3/uL (1.8-7.8); NEUTROPHILS % (AUTO) 89 % (42-75); PLATELET COUNT 130 10^3/uL (130-400); WHITE BLOOD COUNT 19.4 10^3/uL (4.3-11.0)
[2023-06-03 05:56] LABS: POTASSIUM 3.7 MMOL/L (3.6-5.0)
[2023-06-03 05:57] LABS: CALCIUM 8.3 MG/DL (8.5-10.1)
[2023-06-03 05:58] LABS: TOTAL PROTEIN 5.8 GM/DL (6.4-8.2)
[2023-06-03 06:00] LABS: BILIRUBIN,TOTAL 1.3 MG/DL (0.1-1.0)
[2023-06-03 06:02] LABS: CREATININE SERUM 1.04 MG/DL (0.60-1.30)
--- NOTE | 2023-06-03 06:33 | Diagnostic Imaging Report ---
PROCEDURE: CT chest, abdomen, and pelvis with contrast. TECHNIQUE: Multiple contiguous axial images were obtained through the chest, abdomen, and pelvis after the administration of intravenous contrast. Auto Exposure Controls were utilized during the CT exam to meet ALARA standards for radiation dose reduction. INDICATION: Elevated LFTs, abdominal pain, chest pain. COMPARISON: Scrotal ultrasound 06/02/2023. FINDINGS: No suspicious pulmonary nodules. Bibasilar airspace opacities. No pleural effusion, pneumothorax, or pleural mass. The heart is enlarged. No pericardial effusion. There is moderate calcified coronary artery atherosclerosis. Normal caliber aorta. Enlarged pulmonary trunk compatible with pulmonary hypertension. The liver, spleen, and left adrenal gland are normal. The right adrenal gland demonstrates a hyperenhancing mass measuring 3.5 x 2.8 cm. Hyperenhancing mass within the right kidney measuring 2.2 x 2.7 cm. No hydronephrosis on either side. No nephrolithiasis. A calcified aortic atherosclerosis without aneurysm. Markedly enlarged prostate gland. Scattered diverticula within the sigmoid colon without evidence of diverticulitis. Circumferential wall thickening of the gastric antrum. A normal appendix. No free air, loculated fluid collections, or ascites. The urinary bladder is decompressed. Partially imaged edema within the bilateral epididymides may be seen with epididymitis. IMPRESSION: Mass within the right kidney concerning for cancer. Mass within the right adrenal gland concerning for metastatic lesion or other neoplasm. Partially imaged edema within the bilateral epididymides may be seen with epididymitis. Gastric wall thickening of the gastric antrum could be seen with gastritis. Scattered diverticula of the sigmoid colon without evidence of acute diverticulitis. Enlarged prostate. Dictated by: Dictated on workstation # [id number]
--- NOTE | 2023-06-03 08:49 | History & Physical ---
KOLBY OLSEN 06/03/23 0849: History of Present Illness History of Present Illness Reason for visit/HPI Milo is an 82 yo M with a PMH of HTN, HLD, CAD with stent placement (2020), BPH, gout and GERD who presented to the ED with his son yesterday with complaints of testicular pain and swelling x the last several days as well as a fever with a Tmax of 103 that day. Earlier that day, he had an ultrasound outpatient showing left-sided epidydymo-orchitis with an abscess and was started on doxycyline. At the ED he was found to have WBC of 21.5, CRP of 23.67, sed rate of 20, AST 193, ALT 151, ALP 141, and total bilirubin 1.6. 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 In addition, CXR showed a "possible mild right infrahilar infiltrate". The patient was initiated on Zosyin, fentanyl and IVF and admitted for further management. This morning, his friend is present at bedside and answers some questions as the patient is somnolent from poor sleep last night. The patient denies any abdominal pain, back pain or N/V/D since last night. He denies chills. He ate breakfast without difficultly and has urinated 2x since hospitalization without difficulty. His friend states that the patient has no history of liver or gallbladder disease, uses alcohol infrequently, and is not oxygen dependent at home. Date of Admission Jun 02, 2023 at 23:08 Date Seen by a Provider: Jun 03, 2023 I consulted on this patient on 06/03/23 08:48 Attending Physician Palomo Headley MD Admitting Physician Admitting Physician: Marylu Vargas DO Attending Physician: Marylu Vargas DO Consult Allergies and Home Medications Allergies Coded Allergies: No Known Drug Allergies (Unverified , 11/11/10) Patient Home Medication List Allopurinol (Allopurinol) 300 Mg Tablet, 300 MG PO DAILY, (Reported) Entered as Reported by: RYDER GLASER on 06/03/23 1138 Last Action: Reviewed Amlodipine Besylate (Amlodipine Besylate) 5 Mg Tablet, 5 MG PO DAILY, (Reported) Entered as Reported by: AYAKA STANLEY on 07/29/20 174 Last Action: Reviewed Ascorbate Calcium (Vitamin C) 500 Mg Tablet, 500 MG PO DAILY, (Reported) Entered as Reported by: RYDER GLASER on 06/03/231137 Last Action: Reviewed Aspirin (Aspirin EC) 81 Mg Tablet.dr, 81 MG PO DAILY, (Reported) Entered as Reported by: RYDER GLASER on 06/03/231141 Last Action: Reviewed Atorvastatin Calcium (Atorvastatin Calcium) 40 Mg Tablet, 20 MG PO HS, (Reported) Entered as Reported by: RYDER GLASER on 06/03/231137 Last Action: Reviewed Benazepril HCl (Benazepril HCl) 20 Mg Tablet, 20 MG PO DAILY, (Reported) Entered as Reported by: RYDER GLASER on 06/03/231137 Last Action: Reviewed Cholecalciferol (Vitamin D3) (Vitamin D3) 50 Mcg (2000 Unit) Capsule, 50 MCG PO DAILY, (Reported) Entered as Reported by: RYDER GLASER on 06/03/231137 Last Action: Reviewed Doxycycline Hyclate (Doxycycline Hyclate) 100 Mg Capsule, 100 MG PO BID, (Reported) Entered as Reported by: RYDER GLASER on 06/03/231137 Last Action: Reviewed Finasteride (Finasteride) 5 Mg Tablet, 5 MG PO HS, (Reported) Entered as Reported by: RYDER GLASER on 06/03/231137 Last Action: Reviewed Furosemide (Furosemide) 20 Mg Tablet, 20 MG PO DAILY, (Reported) Entered as Reported by: RYDER GLASER on 06/03/231137 Last Action: Reviewed Multivitamin (Multivitamin) 1 Each Tablet, 1 EACH PO DAILY, (Reported) Entered as Reported by: RYDER GLASER on 06/03/231137 Last Action: Reviewed Nebivolol HCl (Nebivolol HCl) 10 Mg Tablet, 10 MG PO HS, (Reported) Entered as Reported by: RYDER GLASER on 06/03/231137 Last Action: Reviewed Pantoprazole Sodium (Pantoprazole Sodium) 40 Mg Tablet.dr, 40 MG PO DAILY, (Reported) Entered as Reported by: RYDER GLASER on 06/03/231137 Last Action: Reviewed Tamsulosin HCl (Flomax) 0.4 Mg Cap, 0.4 MG PO BID, (Reported) Entered as Reported by: RYDER GLASER on 06/03/231137 Last Action: Reviewed Vitamin E Mixed (Vitamin E) 400 Unit Tablet, 400 UNIT PO DAILY, (Reported) Entered as Reported by: RYDER GLASER on 06/03/231137 Last Action: Reviewed Discontinued Medications Allopurinol (Allopurinol) 300 Mg Tablet, (Reported) Discontinued Reason: No Longer Taking Entered as Reported by: ANAMARIA NICOLE on 11/05/162132 Last Action: Discontinued Amoxicillin/Potassium Clav (Augmentin 875-125 Tablet) 1 Each Tablet, 1 EACH PO BID Discontinued Reason: No Longer Taking Prescribed by: MICHELLE VENEGAS on 04/11/212005 Last Action: Discontinued Aspirin (Aspirin EC) 81 Mg Tablet.dr, 81 MG PO DAILY Discontinued Reason: No Longer Taking Prescribed by: LANCE MILES on 07/31/20646 Last Action: Discontinued Aspirin (Aspirin EC) 81 Mg Tablet.dr, 81 MG PO DAILY, (Reported) Discontinued Reason: Duplicate Order Entered as Reported by: RYDER GLASER on 06/03/231137 Last Action: Discontinued Atorvastatin Calcium (Atorvastatin Calcium) 80 Mg Tablet, 80 MG PO HS Discontinued Reason: No Longer Taking Prescribed by: LANCE MILES on 07/31/20646 Last Action: Discontinued Benazepril HCl (Benazepril HCl) 20 Mg Tablet, 20 MG PO BID, (Reported) Discontinued Reason: No Longer Taking Entered as Reported by: ANAMARIA NICOLE on 11/05/162132 Last Action: Discontinued Clopidogrel Bisulfate (Clopidogrel) 75 Mg Tablet, 75 MG PO DAILY Discontinued Reason: No Longer Taking Prescribed by: LANCE MILES on 07/31/20646 Last Action: Discontinued Hydrochlorothiazide (Hydrochlorothiazide) 50 Mg Tablet, (Reported) Discontinued Reason: No Longer Taking Entered as Reported by: ANAMARIA NICOLE on 11/05/162132 Last Action: Discontinued Metoprolol Succinate (Metoprolol Succinate) 50 Mg Tab.er.24h, 50 MG PO DAILY Discontinued Reason: No Longer Taking Prescribed by: LANCE MILES on 07/31/20646 Last Action: Discontinued Pantoprazole Sodium (Pantoprazole Sodium) 40 Mg Tablet.dr, 40 MG PO DAILY Discontinued Reason: No Longer Taking Prescribed by: LANCE MILES on 07/31/20 0647 Last Action: Discontinued Past Tdodrpv-Ylvifk-Hjvmmh Hx Patient Social History Tobacco Use?: No Use of E-Cig and/or Vaping dev: No Substance use?: No Alcohol Use?: No Pt feels they are or have been: No Immunizations Up To Date Date of Influenza Vaccine: Jun 04, 2020 First/Initial COVID19 Vaccinat: 09/2020 Second COVID19 Vaccination Oswaldo: 09/2020 Tetanus Booster (TDap): Unknown Seasonal Allergies Seasonal Allergies: No Current Status Advance Directives: No Communicates: Verbally Primary Language: [place] Preferred Spoken Language: [place] Is interpretation needed?: No Sensory deficits: Vision impairment Implanted or Applied Medical D: Stents Past Medical History Surgeries: Adenoidectomy, Cardiac, Coronary Stent, Tonsillectomy Coronary Artery Disease, Heart Attack, High Cholesterol, Hypertension Prostate Problems Blood Disorders: No Family Medical History CARDIAC CATH 07/29/[address] MILES: CONCLUSION: 1. Acute ST elevation myocardial infarction in the anterior wall with emergency angioplasty and stenting with door to balloon time 66 minutes 2. Total occlusion of the LAD was successful balloon angioplasty then deployment of Jil 2.25 x 23 mm expanded to 2.5 mm with excellent results 3. Large dominant right coronary artery with mild disease nonobstructive disease, mild disease in the circumflex artery 4. Normal left ventricular size, normal contracted 50, anterior wall is bharati normally, EF 60 percent 5. Malignant hypertension, patient was started on nitroglycerin drip Review of Systems Constitutional: malaise Physical Exam Vital Signs Vital Signs - First Documented 06/02/23 06/02/23 06/03/23 21:04 21:20 00:16 Temp 36.9 Pulse 94 Resp 18 B/P (MAP) 141/81 (101) Pulse Ox 94 O2 Delivery Room Air O2 Flow Rate 2.00 FiO2 28 Capillary Refill : Less Than 3 Seconds Height, Weight, BMI Height: 5'10.00" Weight: 185lbs. oz. 83.462767mx; 27.40 BMI Method:Estimated General Appearance: No Apparent Distress Respiratory: Normal Breath Sounds Cardiovascular: Regular Rate, Rhythm Gastrointestinal: Non Tender Neurologic/Psychiatric: Alert, Oriented x3 Skin: Normal Color, Warm/Dry Assessment/Plan Admission Diagnosis Left epididymo-orchitis without abscess Leukocytosis - WBC 19.4 from 21.5 yesterday - Urology has been consulted - D/C IVF to encourage oral intake - Continue vancomycin - Continue zosyn - Pain control Transaminitis Hyperbilirubinemia - Etiology unclear; no known h/o of liver or gallbladder disease - Possible underlying fatty liver disease - Downtrending Shortness of breath - No hypoxia though patient intermittently using oxygem - Right perihilar infiltrated noted on 06/02 CXR MARYLU VARGAS DO 06/04/23 0513: History of Present Illness History of Present Illness Reason for visit/HPI Chief complaint: Testicular infection with sepsis HPI: This is an 82-year-old male who presented to the hospital with testicular pain found to have cellulitis and infection of the testicle. Urology has been evaluating him and he sees them on a regular basis. He will be maintained on broad-spectrum IV antibiotics. Time Seen by a Provider: 11:00 Allergies and Home Medications Allergies Coded Allergies: No Known Drug Allergies (Unverified , 11/11/10) Patient Home Medication List Home Medication List Reviewed: Yes Allopurinol (Allopurinol) 300 Mg Tablet, 300 MG PO DAILY, (Reported) Entered as Reported by: RYDER GLASER on 06/03/231137 Last Action: Reviewed Amlodipine Besylate (Amlodipine Besylate) 5 Mg Tablet, 5 MG PO DAILY, (Reported) Entered as Reported by: AYAKA STANLEY on 07/29/20 1742 Last Action: Reviewed Ascorbate Calcium (Vitamin C) 500 Mg Tablet, 500 MG PO DAILY, (Reported) Entered as Reported by: RYDER GLASER on 06/03/231137 Last Action: Reviewed Aspirin (Aspirin EC) 81 Mg Tablet.dr, 81 MG PO DAILY, (Reported) Entered as Reported by: RYDER GLASER on 06/03/23 114 Last Action: Reviewed Atorvastatin Calcium (Atorvastatin Calcium) 40 Mg Tablet, 20 MG PO HS, (Reported) Entered as Reported by: RYDER GLASER on 06/03/231137 Last Action: Reviewed Benazepril HCl (Benazepril HCl) 20 Mg Tablet, 20 MG PO DAILY, (Reported) Entered as Reported by: RYDER GLASER on 06/03/231137 Last Action: Reviewed Cholecalciferol (Vitamin D3) (Vitamin D3) 50 Mcg (2000 Unit) Capsule, 50 MCG PO DAILY, (Reported) Entered as Reported by: RYDER GLASER on 06/03/231137 Last Action: Reviewed Doxycycline Hyclate (Doxycycline Hyclate) 100 Mg Capsule, 100 MG PO BID, (Reported) Entered as Reported by: RYDER GLASER on 06/03/231137 Last Action: Reviewed Finasteride (Finasteride) 5 Mg Tablet, 5 MG PO HS, (Reported) Entered as Reported by: RYDER GLASER on 06/03/231137 Last Action: Reviewed Furosemide (Furosemide) 20 Mg Tablet, 20 MG PO DAILY, (Reported) Entered as Reported by: RYDER GLASER on 06/03/231137 Last Action: Reviewed Multivitamin (Multivitamin) 1 Each Tablet, 1 EACH PO DAILY, (Reported) Entered as Reported by: RYDER GLASER on 06/03/231137 Last Action: Reviewed Nebivolol HCl (Nebivolol HCl) 10 Mg Tablet, 10 MG PO HS, (Reported) Entered as Reported by: RYDER GLASER on 06/03/231137 Last Action: Reviewed Pantoprazole Sodium (Pantoprazole Sodium) 40 Mg Tablet.dr, 40 MG PO DAILY, (Reported) Entered as Reported by: RYDER GLASER on 06/03/231137 Last Action: Reviewed Tamsulosin HCl (Flomax) 0.4 Mg Cap, 0.4 MG PO BID, (Reported) Entered as Reported by: RYDER GLASER on 06/03/231137 Last Action: Reviewed Vitamin E Mixed (Vitamin E) 400 Unit Tablet, 400 UNIT PO DAILY, (Reported) Entered as Reported by: RYDER GLASER on 06/03/231137 Last Action: Reviewed Discontinued Medications Allopurinol (Allopurinol) 300 Mg Tablet, (Reported) Discontinued Reason: No Longer Taking Entered as Reported by: ANAMARIA NICOLE on 11/05/162132 Last Action: Discontinued Amoxicillin/Potassium Clav (Augmentin 875-125 Tablet) 1 Each Tablet, 1 EACH PO BID Discontinued Reason: No Longer Taking Prescribed by: MICHELLE VENEGAS on 04/11/212005 Last Action: Discontinued Aspirin (Aspirin EC) 81 Mg Tablet., 81 MG PO DAILY Discontinued Reason: No Longer Taking Prescribed by: LANCE MILES on 07/31/20646 Last Action: Discontinued Aspirin (Aspirin EC) 81 Mg Tablet., 81 MG PO DAILY, (Reported) Discontinued Reason: Duplicate Order Entered as Reported by: RYDER GLASER on 06/03/23 1138 Last Action: Discontinued Atorvastatin Calcium (Atorvastatin Calcium) 80 Mg Tablet, 80 MG PO HS Discontinued Reason: No Longer Taking Prescribed by: LANCE MILES on 07/31/20646 Last Action: Discontinued Benazepril HCl (Benazepril HCl) 20 Mg Tablet, 20 MG PO BID, (Reported) Discontinued Reason: No Longer Taking Entered as Reported by: ANAMARIA NICOLE on 11/05/162132 Last Action: Discontinued Clopidogrel Bisulfate (Clopidogrel) 75 Mg Tablet, 75 MG PO DAILY Discontinued Reason: No Longer Taking Prescribed by: LANCE MILES on 07/31/20646 Last Action: Discontinued Hydrochlorothiazide (Hydrochlorothiazide) 50 Mg Tablet, (Reported) Discontinued Reason: No Longer Taking Entered as Reported by: ANAMARIA NICOLE on 11/05/162132 Last Action: Discontinued Metoprolol Succinate (Metoprolol Succinate) 50 Mg Tab.er.24h, 50 MG PO DAILY Discontinued Reason: No Longer Taking Prescribed by: LANCE MILES on 07/31/20646 Last Action: Discontinued Pantoprazole Sodium (Pantoprazole Sodium) 40 Mg Tablet., 40 MG PO DAILY Discontinued Reason: No Longer Taking Prescribed by: LANCE MILES on 07/31/20646 Last Action: Discontinued Past Kvtqoph-Igxxyg-Feckyc Hx Patient Social History Marrital Status: single Employed/Student: retired Smoking Status: Never a Smoker Past Medical History High Cholesterol, Hypertension Benign Prostatic Hyperpl Review of Systems Constitutional: see HPI, fever, malaise Physical Exam General Appearance: No Apparent Distress, WD/WN Eyes: Bilateral Eye Normal Inspection, Bilateral Eye PERRL, Bilateral Eye EOMI HEENT: PERRL/EOMI, Normal ENT Inspection, Pharynx Normal Neck: Full Range of Motion, Normal Inspection, Non Tender, Supple, Carotid Bruit Respiratory: Chest Non Tender, Lungs Clear, Normal Breath Sounds, No Accessory Muscle Use, No Respiratory Distress Cardiovascular: Regular Rate, Rhythm, No Edema, No Gallop, No JVD, No Murmur, Normal Peripheral Pulses Gastrointestinal: Normal Bowel Sounds, No Organomegaly, No Pulsatile Mass, Non Tender, Soft Back: Normal Inspection, No CVA Tenderness, No Vertebral Tenderness Extremity: Normal Capillary Refill, Normal Inspection, Normal Range of Motion, Non Tender, No Calf Tenderness, No Pedal Edema Neurologic/Psychiatric: Alert, Oriented x3, No Motor/Sensory Deficits, Normal Mood/Affect Skin: Normal Color, Warm/Dry Lymphatic: No Adenopathy Assessment/Plan Assessment and Plan Assessment: Sepsis Testicular infection BPH Hypertension Hyperlipidemia Gout Plan: IV antibiotics Urology consult Monitor closely Admission Diagnosis Admission Status: Inpatient Order (span 2 midnights) Reason for Inpatient Admission: Sepsis Supervisory-Addendum Brief Verification & Attestation Participated in pt care: history, MDM, physical Personally performed: exam, history, MDM, supervision of care Care discussed with: Medical Student Procedures: n/a Results interpretation: Verified all documentation Verification and Attestation of Medical Student E/M Service A medical student performed and documented this service in my presence. I reviewed and verified all information documented by the medical student and made modifications to such information, when appropriate. I personally performed the physical exam and medical decision making. Marylu Vargas Jun 04, 2023,05:13 KOLBY OLSEN Jun 03, 2023 08:49 MARYLU VARGAS DO Jun 04, 2023 05:13
[2023-06-03] MEDS: DOCUSATE SODIUM 100 MG CAPSULE PO SCH ×2 (08:56→19:50)
[2023-06-03] MEDS: SENNOSIDES 8.6 MG TABLET PO SCH ×2 (08:56→19:50)
[2023-06-03] MEDS ORDERED: TMSL.4C PO (11:38)
[2023-06-03] MEDS ORDERED: FURO20TA4 PO (11:38)
[2023-06-03] MEDS ORDERED: DOXY100C5 PO (11:38)
[2023-06-03] MEDS ORDERED: PANT40TA52 PO (11:38)
[2023-06-03] MEDS ORDERED: NEBI10TA11 PO (11:38)
[2023-06-03] MEDS ORDERED: ASPI-1238 PO ×2 (11:38→11:42)
[2023-06-03] MEDS ORDERED: VITA400T9 PO (11:38)
[2023-06-03] MEDS ORDERED: ASCO-262 PO (11:38)
[2023-06-03] MEDS ORDERED: BENA-3 PO (11:38)
[2023-06-03] MEDS ORDERED: FINA5TAB6 PO (11:38)
[2023-06-03] MEDS ORDERED: ATOR40TA70 PO (11:38)
[2023-06-03] MEDS ORDERED: ALLO300T2 PO (11:38)
[2023-06-03] MEDS ORDERED: CHOL20002 PO (11:38)
[2023-06-03] MEDS ORDERED: MULT-1136 PO (11:38)
--- NOTE | 2023-06-03 12:40 | Consultation ---
History of Present Illness History of Present Illness Patient Consulted On(oswaldo/time) 06/03/23 12:35 Date Seen by Provider: Jun 03, 2023 Time Seen by Provider: 11:30 Reason for Visit: Left epididymal orchitis History of Present Illness 82-year-old male admitted to the emergency room last evening with mental status changes, fever and left hemiscrotal swelling. Patient been followed by myself in [place], [place] in the past. He had been undergoing evaluation for enlarged prostate at in [place]. Last Thursday he underwent instrumentation which sounds like attempted urodynamics and cystoscopy. He was given a course of antibiotics afterwards. Few days later he started to have swelling of his left hemiscrotum. His and noted some mental status changes and high fever. He was then brought to his family physician who ordered a scrotal ultrasound which showed a findings consistent with epididymal orchitis. Symptoms worsen exam present emergency room. Currently his mentation appears normal. He denies any dysuria. He feels he is emptying his bladder well. He does complain of left hemiscrotal swelling and discomfort. He denies nausea. She denies flank pain. He has had no prior episodes epididymitis. He had had a TURP approximately [address] a study had been performed in the ER here. I reviewed this. This revealed a incidental 2 cm mass in his right kidney. His prostate is very large. There are findings consistent with left epididymal orchitis but no abscess. His white count was 21,000 on admission. His urine did not appear infected. Allergies and Home Medications Allergies Coded Allergies: No Known Drug Allergies (Unverified , 11/11/10) Patient Home Medication List Home Medication List Reviewed: Yes Allopurinol (Allopurinol) 300 Mg Tablet, 300 MG PO DAILY, (Reported) Entered as Reported by: RYDER GLASER on 06/03/238 Last Action: Reviewed Amlodipine Besylate (Amlodipine Besylate) 5 Mg Tablet, 5 MG PO DAILY, (Reported) Entered as Reported by: AYAKA STANLEY on 07/29/20 849 Last Action: Reviewed Ascorbate Calcium (Vitamin C) 500 Mg Tablet, 500 MG PO DAILY, (Reported) Entered as Reported by: RYDER GLASER on 06/03/238 Last Action: Reviewed Aspirin (Aspirin EC) 81 Mg Tablet.dr, 81 MG PO DAILY, (Reported) Entered as Reported by: RYDER GLASER on 06/03/231141 Last Action: Reviewed Atorvastatin Calcium (Atorvastatin Calcium) 40 Mg Tablet, 20 MG PO HS, (Reported) Entered as Reported by: RYDER GLASER on 06/03/231137 Last Action: Reviewed Benazepril HCl (Benazepril HCl) 20 Mg Tablet, 20 MG PO DAILY, (Reported) Entered as Reported by: RYDER GLASER on 06/03/231137 Last Action: Reviewed Cholecalciferol (Vitamin D3) (Vitamin D3) 50 Mcg (2000 Unit) Capsule, 50 MCG PO DAILY, (Reported) Entered as Reported by: RYDER GLASER on 06/03/231137 Last Action: Reviewed Doxycycline Hyclate (Doxycycline Hyclate) 100 Mg Capsule, 100 MG PO BID, (Reported) Entered as Reported by: RYDER GLASER on 06/03/231137 Last Action: Reviewed Finasteride (Finasteride) 5 Mg Tablet, 5 MG PO HS, (Reported) Entered as Reported by: RYDER GLASER on 06/03/231137 Last Action: Reviewed Furosemide (Furosemide) 20 Mg Tablet, 20 MG PO DAILY, (Reported) Entered as Reported by: RYDER GLASER on 06/03/231137 Last Action: Reviewed Multivitamin (Multivitamin) 1 Each Tablet, 1 EACH PO DAILY, (Reported) Entered as Reported by: RYDER GLASER on 06/03/231137 Last Action: Reviewed Nebivolol HCl (Nebivolol HCl) 10 Mg Tablet, 10 MG PO HS, (Reported) Entered as Reported by: RYDER GLASER on 06/03/231137 Last Action: Reviewed Pantoprazole Sodium (Pantoprazole Sodium) 40 Mg Tablet.dr, 40 MG PO DAILY, (Reported) Entered as Reported by: RYDER GLAESR on 06/03/231137 Last Action: Reviewed Tamsulosin HCl (Flomax) 0.4 Mg Cap, 0.4 MG PO BID, (Reported) Entered as Reported by: RYDER GLASER on 06/03/231137 Last Action: Reviewed Vitamin E Mixed (Vitamin E) 400 Unit Tablet, 400 UNIT PO DAILY, (Reported) Entered as Reported by: RYDER GLASER on 06/03/231137 Last Action: Reviewed Discontinued Medications Allopurinol (Allopurinol) 300 Mg Tablet, (Reported) Discontinued Reason: No Longer Taking Entered as Reported by: ANAMARIA NICOLE on 11/05/162132 Last Action: Discontinued Amoxicillin/Potassium Clav (Augmentin 875-125 Tablet) 1 Each Tablet, 1 EACH PO BID Discontinued Reason: No Longer Taking Prescribed by: MICHELLE VENEGAS on 04/11/212005 Last Action: Discontinued Aspirin (Aspirin EC) 81 Mg Tablet.dr, 81 MG PO DAILY Discontinued Reason: No Longer Taking Prescribed by: LANCE MILES on 07/31/20646 Last Action: Discontinued Aspirin (Aspirin EC) 81 Mg Tablet.dr, 81 MG PO DAILY, (Reported) Discontinued Reason: Duplicate Order Entered as Reported by: RYDER GLASER on 06/03/231137 Last Action: Discontinued Atorvastatin Calcium (Atorvastatin Calcium) 80 Mg Tablet, 80 MG PO HS Discontinued Reason: No Longer Taking Prescribed by: LANCE MILES on 07/31/20646 Last Action: Discontinued Benazepril HCl (Benazepril HCl) 20 Mg Tablet, 20 MG PO BID, (Reported) Discontinued Reason: No Longer Taking Entered as Reported by: ANAMARIA NICOLE on 11/05/162132 Last Action: Discontinued Clopidogrel Bisulfate (Clopidogrel) 75 Mg Tablet, 75 MG PO DAILY Discontinued Reason: No Longer Taking Prescribed by: LANCE MILES on 07/31/20646 Last Action: Discontinued Hydrochlorothiazide (Hydrochlorothiazide) 50 Mg Tablet, (Reported) Discontinued Reason: No Longer Taking Entered as Reported by: ANAMARIA NICOLE on 11/05/162132 Last Action: Discontinued Metoprolol Succinate (Metoprolol Succinate) 50 Mg Tab.er.24h, 50 MG PO DAILY Discontinued Reason: No Longer Taking Prescribed by: LANCE MILES on 07/31/20646 Last Action: Discontinued Pantoprazole Sodium (Pantoprazole Sodium) 40 Mg Tablet.dr, 40 MG PO DAILY Discontinued Reason: No Longer Taking Prescribed by: LANCE MILES on 07/31/20646 Last Action: Discontinued Past Iyrtunq-Fcixiu-Bdabhi Hx Patient Social History Tobacco Use?: No Use of E-Cig and/or Vaping dev: No Substance use?: No Alcohol Use?: No Pt feels they are or have been: No Immunizations Up To Date Influenza Vaccine Up-to-Date: Yes; Up-to-Date First/Initial COVID19 Vaccinat: 09/2020 Second COVID19 Vaccination Oswaldo: 09/2020 Third COVID19 Vaccination Date: 09/2020 Seasonal Allergies Seasonal Allergies: No Past Medical History Surgery/Hospitalization HX: HTN, VA, Surgeries: Yes (GROWTH OFF LEFT OUTSIDE ABD) Adenoidectomy, Cardiac, Coronary Stent, Tonsillectomy Respiratory: No Cardiac: Yes (STEMI WITH STENT 2020) Coronary Artery Disease, Heart Attack, High Cholesterol, Hypertension Neurological: No Genitourinary: Yes Prostate Problems Gastrointestinal: No Musculoskeletal: No Endocrine: No HEENT: No Cancer: No Psychosocial: No Integumentary: No Blood Disorders: No Family Medical History CARDIAC CATH 07/29/[address] MILES: CONCLUSION: 1. Acute ST elevation myocardial infarction in the anterior wall with emergency angioplasty and stenting with door to balloon time 66 minutes 2. Total occlusion of the LAD was successful balloon angioplasty then deployment of Jil 2.25 x 23 mm expanded to 2.5 mm with excellent results 3. Large dominant right coronary artery with mild disease nonobstructive disease, mild disease in the circumflex artery 4. Normal left ventricular size, normal contracted 50, anterior wall is bharati normally, EF 60 percent 5. Malignant hypertension, patient was started on nitroglycerin drip Review of Systems-General Constitutional: see HPI EENTM: see HPI Respiratory: see HPI Cardiovascular: see HPI Gastrointestinal: see HPI Musculoskeletal: see HPI Skin: see HPI Psychiatric/Neurological: See HPI Physical Exam-General Problems Physical Exam Vital Signs Vital Signs - First Documented 06/02/23 06/02/23 06/03/23 21:04 21:20 00:16 Temp 36.9 Pulse 94 Resp 18 B/P (MAP) 141/81 (101) Pulse Ox 94 O2 Delivery Room Air O2 Flow Rate 2.00 FiO2 28 Capillary Refill : Less Than 3 Seconds General Appearance: WD/WN, no apparent distress Respiratory: no respiratory distress Gastrointestinal: non tender, soft Genital/Rectal: other (Penis is edematous. The left hemiscrotum has skin thickening and fixation to the testicle. There is swelling and erythema but no evidence of skin breakdown or fluctuance. Right hemiscrotum is normal and the testicle appears normal.) Assessment/Plan Assessment/Plan Admission Diagnosis/Plan 1.. Left epididymoorchitis. I recommend continue broad-spectrum antibiotics. Scrotal elevation observation in the hospital for the next couple days. I do not think it needs any surgical intervention at this time. #2 Small right renal mass. Recommend observation at this time. Repeat CT scan was kidneys with and without contrast in 3 months. Omar DÍAZ MD Jun 03, 2023 12:40
[2023-06-03] MEDS: VANCOMYCIN 1250MG/250ML PREMIX 250 ML IV SCH (23:19)
[2023-06-04 03:08] VITALS: BP 143/74
[2023-06-04] MEDS: PIPERACILLIN/Tazobactam 4.5 GM in NS (IVPB) 100 ML 100 ML IV SCH ×3 (03:09→18:38)
[2023-06-04 05:47] LABS: BASOPHILS # (AUTO) 0.1 10^3/uL (0.0-0.1); BASOPHILS % (AUTO) 0 % (0-10); EOSINOPHILS # (AUTO) 0.1 10^3/uL (0.0-0.3); EOSINOPHILS % (AUTO) 0 % (0-10); HEMATOCRIT 36 % (40-54); HEMOGLOBIN 12.4 g/dL (13.3-17.7); LYMPHOCYTES # (AUTO) 0.5 10^3/uL (1.0-4.0); LYMPHOCYTES % (AUTO) 3 % (12-44); MEAN CORPUSCULAR HEMOGLOBIN 31 pg (25-34); MEAN CORPUSCULAR HGB CONC 34 g/dL (32-36); MEAN CORPUSCULAR VOLUME 90 fL (80-99); MEAN PLATELET VOLUME 10.5 fL (9.0-12.2); MONOCYTES # (AUTO) 0.7 10^3/uL (0.0-1.0); MONOCYTES % (AUTO) 4 % (0-12); NEUTROPHILS # (AUTO) 15.2 10^3/uL (1.8-7.8); NEUTROPHILS % (AUTO) 91 % (42-75); PLATELET COUNT 141 10^3/uL (130-400); WHITE BLOOD COUNT 16.6 10^3/uL (4.3-11.0)
[2023-06-04 05:48] LABS: POTASSIUM 3.2 MMOL/L (3.6-5.0)
[2023-06-04 05:49] LABS: CALCIUM 8.8 MG/DL (8.5-10.1)
[2023-06-04 05:52] LABS: BILIRUBIN,TOTAL 0.8 MG/DL (0.1-1.0)
[2023-06-04 05:54] LABS: CREATININE SERUM 1.11 MG/DL (0.60-1.30)
[2023-06-04] MEDS: THERAPEUTIC MULTIVITAMIN W/MINERALS TABLET PO SCH (06:23)
[2023-06-04] MEDS: PANTOPRAZOLE 40 MG TABLET PO SCH (06:23)
[2023-06-04 08:02] VITALS: BP 144/77
[2023-06-04] MEDS: VITAMIN D3 25 MCG (1,000 UNITS) TABLET PO SCH (08:23)
[2023-06-04] MEDS: SENNOSIDES 8.6 MG TABLET PO SCH ×2 (08:23→19:38)
[2023-06-04] MEDS: DOCUSATE SODIUM 100 MG CAPSULE PO SCH ×2 (08:23→19:38)
[2023-06-04] MEDS: POTASSIUM CHLORIDE 20 MEQ TABLET PO SCH ×2 (08:23→18:38)
[2023-06-04] MEDS: ASPIRIN enteric coated 81MG TABLET PO SCH (08:23)
[2023-06-04] MEDS: amLODIPine 5 MG TABLET PO SCH (08:24)
[2023-06-04] MEDS: FUROSEMIDE 20 MG TABLET PO SCH (08:24)
[2023-06-04] MEDS: TAMSULOSIN 0.4 MG (FLOMAX) CAP PO SCH ×2 (08:24→20:14)
[2023-06-04] MEDS: carvediloL 12.5 MG TABLET PO SCH ×2 (08:24→18:38)
[2023-06-04] MEDS: ALLOPURINOL 300 MG TABLET PO SCH (08:24)
[2023-06-04] MEDS: VITAMIN E 180 MG PO SCH (08:47)
--- NOTE | 2023-06-04 08:53 | Progress Note ---
Progress Note He thinks he may be a little more swollen. No urinary complaints afebrile and WBC has improved PE: left hemiscrotum maybe a little more swollen. No fluctuance. Mildly tender to palpation. A/P: left epididymoorchitis slowly improving. Continue scrotal evevation and current abx until culture returns Omar DÍAZ MD Jun 04, 2023 08:53
--- NOTE | 2023-06-04 09:54 | Progress Note ---
KOLBY OLSEN 06/04/23 0954: Subjective Date Seen by a Provider: Jun 04, 2023 Time Seen by a Provider: 11:00 Subjective/Events-last exam 82 year old male admitted on 06/02 for epididymo-orchitis without abscess. This morning, the patient reports improvement in scrotal pain. He indicates that a towel was placed for elevation yesterday. He denies abdominal pain, chills or N/V. He is urinating without difficultly. He ate a full breakfast this morning. Focused Exam Lactate Level 06/02/23 21:12: Lactic Acid Level 1.52 Objective Exam Last Set of Vital Signs Vital Signs Date Time Temp Pulse Resp B/P (MAP) Pulse Ox O2 Delivery O2 Flow Rate FiO2 06/04/23 08:02 37.4 87 20 144/77 (99) 92 Room Air 06/04/23 03:08 1.00 1.00 06/03/23 00:16 28 Capillary Refill : Less Than 3 Seconds I&O Intake and Output 06/03/23 23:59 Intake Total 3935 ml Output Total 775 ml Balance 3160 ml Intake Oral 2435 ml IV Total 1500 ml Output Urine Total 775 ml # Voids 6 # Bowel Movements 1 General: Alert, Oriented X3 Lungs: Clear to Auscultation Heart: Regular Rate Psych/Mental Status: Mental Status NL, Mood NL Results Lab Laboratory Tests 06/04/23 05:20: White Blood Count 16.6H, Red Blood Count 4.03L, Hemoglobin 12.4L, Hematocrit 36L , Mean Corpuscular Volume 90, Mean Corpuscular Hemoglobin 31, Mean Corpuscular Hemoglobin Concent 34, Red Cell Distribution Width 13.2, Platelet Count 141, Mean Platelet Volume 10.5, Immature Granulocyte % (Auto) 1, Neutrophils (%) (Auto) 91H, Lymphocytes (%) (Auto) 3L, Monocytes (%) (Auto) 4, Eosinophils (%) (Auto) 0, Basophils (%) (Auto) 0, Neutrophils # (Auto) 15.2H, Lymphocytes # (Auto) 0.5L, Monocytes # (Auto) 0.7, Eosinophils # (Auto) 0.1, Basophils # (Auto) 0.1, Immature Granulocyte # (Auto) 0.2H, Sodium Level 138, Potassium Level 3.2L, Chloride Level 104, Carbon Dioxide Level 25, Anion Gap 9, Blood Urea Nitrogen 19H, Creatinine 1.11, Estimat Glomerular Filtration Rate 66, BUN/Creatinine Ratio 17, Glucose Level 94, Calcium Level 8.8, Corrected Calcium 9.6, Total Bilirubin 0.8, Aspartate Amino Transf (AST/SGOT) 76H, Alanine Aminotransferase (ALT/SGPT) 103H, Alkaline Phosphatase 109, Total Protein 6.0L, Albumin 3.0L Microbiology 06/03/23 Urine Culture - Preliminary, Resulted Gram Negative Bacillus 1 06/02/23 Blood Culture - Preliminary, Resulted Assessment/Plan Assessment/Plan Assess & Plan/Chief Complaint Weakness - Likely related to infection and chronic R hip pain - PT evaluation has been ordered - Encourage ambulation Left epididymo-orchitis without abscess Leukocytosis - WBC downtrending; 16.6 today from 21.5 at admission - UA 06/02 + for leukocyte esterase. Cultures pending. - Urology consulted and in agreement with current plan - Towel in place for elevation of scrotum - Continue vancomycin - Continue zosyn - Pain control Hypokalemia - Potassium of 3.2 this morning - Replace as needed Transaminitis, mild - Etiology unclear - Downtrending steaily Small right renal mass - First noted on 06/02 CTA - Urology recommending repeat CT in 3 months Disposition: Continue broad spectrum Abx, can consider discharge tomorrow if cli nical course continues to improve. Clinical Quality Measures Admission Status Admission Dx Left epididymo-orchitis without abscess Leukocytosis - WBC 19.4 from 21.5 yesterday - Urology has been consulted - D/C IVF to encourage oral intake - Continue vancomycin - Continue zosyn - Pain control Transaminitis Hyperbilirubinemia - Etiology unclear; no known h/o of liver or gallbladder disease - Possible underlying fatty liver disease - Downtrending Shortness of breath - No hypoxia though patient intermittently using oxygem - Right perihilar infiltrated noted on 06/02 CXR MARYLU VARGAS DO 06/04/232049: Subjective Subjective/Events-last exam Much improved Will order PT OT No falls Pain controlled IV abx maintained Review of Systems General: Fatigue, Malaise Objective Exam General: Alert, Oriented X3, Cooperative, No Acute Distress Lungs: Clear to Auscultation, Normal Air Movement Heart: Regular Rate Psych/Mental Status: Mental Status NL Assessment/Plan Assessment/Plan Assess & Plan/Chief Complaint IV abx PT OT Supervisory-Addendum Brief Verification & Attestation Participated in pt care: history, MDM, physical Personally performed: exam, history, MDM, supervision of care Care discussed with: Medical Student Procedures: n/a Results interpretation: Verified all documentation Verification and Attestation of Medical Student E/M Service A medical student performed and documented this service in my presence. I revi ewed and verified all information documented by the medical student and made modifications to such information, when appropriate. I personally performed the physical exam and medical decision making. Marylu Vargas Jun 04, 2023,20:49 KOLBY OLSEN Jun 04, 2023 09:54 MARYLU VARGAS DO Jun 04, 2023 20:50
[2023-06-04 11:35] VITALS: BP 143/79
--- NOTE | 2023-06-04 14:24 | Occupational Therapy Eval ---
OT Evaluation-General/PLF Medical Diagnosis Admission Date Jun 02, 2023 at 23:08 Medical Diagnosis: testicular edema Onset Date: Jun 02, 2023 Therapy Diagnosis Therapy Diagnosis: scrotal pain Height/Weight Height (Feet): 5 Height (Inches): 10.00 Weight (Pounds): 185 Precautions Precautions/Isolations: Standard Precautions Weight Bear Status Weight Bearing Restriction: Full Weight Bearing Referral Referral Reason: Self Care, Evaluation/Treatment Medical History Additional Medical History 82 yo M with a PMH of HTN, HLD, CAD with stent placement (2020), BPH, gout and GERD who presented to the ED with his son yesterday with complaints of testicular pain and swelling x the last several days as well as a fever with a Tmax of 103 that day. Earlier that day, he had an ultrasound outpatient showing left-sided epidydymo-orchitis with an abscess and was started on doxycyline. At the ED he was found to have WBC of 21.5, CRP of 23.67, sed rate of 20, AST 193, ALT 151, ALP 141, and total bilirubin 1.6. 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 In addition, CXR showed a "possible mild right infrahilar infiltrate". Social History Home: Single Level Current Living Status: Alone Entry Into Home: Stairs With Railing Steps Into Home: 1 ADL-Prior Level of Function SCALE: Activities may be completed with or without assistive devices. 3-Jdkszgmmec-fdfhiip completes the activity by him/herself with no assistance from a helper. 5-Set-up or Clean-up Assistance-helper sets up or cleans up; patient completes activity. [place] assists only prior to or following the activity. 4-Supervision or Touching Assistance-helper provides verbal cues and/or touching/steadying and/or contact guard assistance as patient completes activity. Assistance may be provided throughout the activity or intermittently. 3-Partial/Moderate Assistance-helper does LESS THAN HALF the effort. [place] lifts, holds or supports trunk or limbs, but provides less than half the effort. 2-Substantial/Maximal Assistance-helper does MORE THAN HALF the effort. [place] lifts or holds trunk or limbs and provides more than half the effort. 5-Uuiylunct-dqcerr does ALL the effort. Patient does none of the effort to complete the activity. Or, the assistance of 2 or more helpers is required for the patient to complete the activity. If activity was not attempted, code reason: 7-Patient Refused. 9-Not Applicable-not attempted and the patient did not perform the activity before the current illness, exacerbation or injury. 10-Not Attempted due to Environmental Limitations-(lack of equipment, weather restraints, etc.). 88-Not Attempted due to Medical Conditions or Safety Concerns. Self Care: Independent Functional Cognition: Independent Drive Self: Yes OT Current Status Subjective Agreeable to Participate w/ OT Mental Status/Objective Patient Orientation: Person, Place, Time, Situation Current Glasses/Contacts: Yes Hearing Aids: No Hand Dominance: Right Upper Extremity ROM BUE ROM WFLS Upper Extremity Coordination INTACT Upper Extremity Sensation INTACT Upper Extremity Strength AGE APPROPRIATE 4/5 grossly ADL-Treatment Eating (QC): 6 Oral Hygiene (QC): 6 Shower/Bathe Self (QC): 6 (walk in shower, shower stamping bench die maker held shower hose and grab bars) Upper Body Dressing (QC): 6 Lower Body Dressing (QC): 7 (declined) On/Off Footwear (QC): 6 Toileting Hygiene (QC): 6 Education OT Patient Education: Progress toward Goal/Update tx plan, Purpose of tx/functional activities, Reviewed precautions, Rehab process, Safety issues, Transfer techniques Teaching Recipient: Patient Teaching Methods: Demonstration, Discussion Response to Teaching: Return Demonstration OT Legal Services Manager Goals Legal Services Manager Goals 1=Demonstrate adherence to instructed precautions during ADL tasks. 2=Patient will verbalize/demonstrate understanding of assistive devices/modifications for ADL. 3=Patient will improve strength/tolerance for activity to enable patient to perform ADL's. OT Education/Plan Problem List/Assessment Assessment: No Skilled OT Needs ID'd Discharge Recommendations Plan/Recommendations: Discontinue OT Treatment Plan/Plan of Care Patient would benefit from OT for education, treatment and training to promote independence in ADL's, mobility, safety and/or upper extremity function for ADL's. Plan of Care: OTHER (NO OT indicated EVAL ONLY) Treatment Duration: Jun 04, 2023 Frequency: 1 time per week Estimated Hrs Per Day: .25 hour per day Agreement: Yes Rehab Potential: Good Time Start Time: 14:00 Stop Time: 14:16 DATE: Jun 04, 2023 Total Time Billed (hr/min): 16 Billed Treatment Time EVM 16 min DC OT GIRISH MELENDEZ OT Jun 04, 2023 14:24
--- NOTE | 2023-06-04 14:27 | Physical Therapy Evaluation ---
PT Evaluation-General Medical Diagnosis Admission Date Jun 02, 2023 at 23:08 Medical Diagnosis: sepsis Onset Date: Jun 02, 2023 Therapy Diagnosis Therapy Diagnosis: debility Height/Weight Height (Feet): 5 Height (Inches): 10.00 Weight (Pounds): 185 Precautions Precautions/Isolations: Standard Precautions Referral Physician: John Reason for Referral: Evaluation/Treatment Medical History Pertinent Medical History: CAD, HTN Current History ER secondary to testicular pain Reviewed History: Yes Social History Home: Single Level Current Living Status: Alone Entry Into Home: Stairs Without Railing PT Steps Into Home: 1 Prior Prior Level of Function SCALE: Activities may be completed with or without assistive devices. 0-Mjxioeceow-ladeegz completes the activity by him/herself with no assistance from a helper. 5-Set-up or Clean-up Assistance-helper sets up or cleans up; patient completes activity. [place] assists only prior to or following the activity. 4-Supervision or Touching Assistance-helper provides verbal cues and/or touching/steadying and/or contact guard assistance as patient completes activity. Assistance may be provided throughout the activity or intermittently. 3-Partial/Moderate Assistance-helper does LESS THAN HALF the effort. [place] lifts, holds or supports trunk or limbs, but provides less than half the effort. 2-Substantial/Maximal Assistance-helper does MORE THAN HALF the effort. [place] lifts or holds trunk or limbs and provides more than half the effort. 8-Pgclypkdv-abjoca does ALL the effort. Patient does none of the effort to complete the activity. Or, the assistance of 2 or more helpers is required for the patient to complete the activity. If activity was not attempted, code reason: 7-Patient Refused. 9-Not Applicable-not attempted and the patient did not perform the activity before the current illness, exacerbation or injury. 10-Not Attempted due to Environmental Limitations-(lack of equipment, weather restraints, etc.). 88-Not Attempted due to Medical Conditions or Safety Concerns. Bed Mobility: 1 Transfers (B,C,W/C): 1 Gait: 1 Stairs: 1 Indoor Mobility (Ambulation): Independent Stairs: Independent Prior Devices Use: None PT Evaluation-Current Subjective Patient agrees to therapy. Objective Patient Orientation: Normal For Age ROM/Strength ROM Lower Extremities bilateral LE WFL Strength Lower Extremities 5/5 grossly bilateral LE all planes Integumentary/Posture Bowel Incontinence: No Bladder Incontinence: No Posture WFL Neuromuscular (Tone, Coordination, Reflexes) grossly intact with all Sensory Vision: Functional Hearing: Functional Transfers Lying to Sitting/Side of Bed(Q: 6 Sit to Stand (QC): 6 Chair/Knh-uv-Ufkoq Xfer(QC): 6 Gait Mode of Locomotion: Walk Anticipated Mode of Locomotion: Walk Walk 10 feet (QC): 6 Walk 50 ft with 2 Turns(QC): 6 Walk 150 ft (QC): 6 Distance: 250' x 2 Gait Assistive Device: None Comments/Gait Description safe and functional with no deviation Stairs #of Steps: 12 1 Step (curb) (QC): 6 4 Steps (QC): 6 12 Steps (QC): 6 Balance Sitting Static: Normal Sitting Dynamic: Normal Standing Static: Normal Standing Dynamic: Normal Picking up an Object (QC): 6 Assessment/Needs Patient is currently at independent LOF with all gross motor skills safely and does not require skilled PT intervention at this time. Rehab Potential: Fair PT Plan Treatment/Plan Treatment Plan: Discontinue PT Treatment Duration: Jun 04, 2023 Frequency: 1 time per week Estimated Hrs Per Day: .25 hour per day Patient and/or Family Agrees t: Yes Time Time In: 1348 Time Out: 1400 DATE: Jun 04, 2023 Total Billed Treatment Time: 12 Total Billed Treatment 1 visit EVMod 12 min KHAI HENRIQUEZ PT Jun 04, 2023 14:27
[2023-06-04 15:50] VITALS: BP 128/75
[2023-06-04 19:14] VITALS: BP 148/74
[2023-06-04] MEDS: FINASTERIDE 5 MG TABLET PO SCH (20:14)
[2023-06-04] MEDS ORDERED: TROUGH ORDER-PHARMACY XX NR (23:00)
[2023-06-04] MEDS: ENOXAPARIN 40 MG/0.4 ML SYRINGE SC SCH (23:26)
[2023-06-04] MEDS: VANCOMYCIN 1250MG/250ML PREMIX 250 ML IV SCH (23:26)
[2023-06-04 23:41] VITALS: BP 137/76
[2023-06-05 03:45] VITALS: BP 140/68
[2023-06-05] MEDS: PIPERACILLIN/Tazobactam 4.5 GM in NS (IVPB) 100 ML 100 ML IV SCH ×3 (03:57→18:33)
[2023-06-05 05:29] LABS: BASOPHILS # (AUTO) 0.1 10^3/uL (0.0-0.1); BASOPHILS % (AUTO) 0 % (0-10); EOSINOPHILS # (AUTO) 0.1 10^3/uL (0.0-0.3); EOSINOPHILS % (AUTO) 1 % (0-10); HEMATOCRIT 36 % (40-54); HEMOGLOBIN 12.1 g/dL (13.3-17.7); LYMPHOCYTES # (AUTO) 0.6 10^3/uL (1.0-4.0); LYMPHOCYTES % (AUTO) 5 % (12-44); MEAN CORPUSCULAR HEMOGLOBIN 30 pg (25-34); MEAN CORPUSCULAR HGB CONC 34 g/dL (32-36); MEAN CORPUSCULAR VOLUME 89 fL (80-99); MEAN PLATELET VOLUME 10.3 fL (9.0-12.2); MONOCYTES # (AUTO) 0.5 10^3/uL (0.0-1.0); MONOCYTES % (AUTO) 4 % (0-12); NEUTROPHILS # (AUTO) 10.7 10^3/uL (1.8-7.8); NEUTROPHILS % (AUTO) 89 % (42-75); PLATELET COUNT 142 10^3/uL (130-400); WHITE BLOOD COUNT 12.1 10^3/uL (4.3-11.0)
[2023-06-05 05:55] LABS: ALBUMIN 2.9 GM/DL (3.2-4.5); BILIRUBIN,TOTAL 0.6 MG/DL (0.1-1.0); CALCIUM 8.5 MG/DL (8.5-10.1); CREATININE SERUM 1.06 MG/DL (0.60-1.30); POTASSIUM 3.3 MMOL/L (3.6-5.0); TOTAL PROTEIN 5.8 GM/DL (6.4-8.2)
[2023-06-05] MEDS: THERAPEUTIC MULTIVITAMIN W/MINERALS TABLET PO SCH (06:29)
[2023-06-05] MEDS: PANTOPRAZOLE 40 MG TABLET PO SCH (06:29)
[2023-06-05 07:47] VITALS: BP 170/91
[2023-06-05] MEDS: FUROSEMIDE 20 MG TABLET PO SCH (08:24)
[2023-06-05] MEDS: SENNOSIDES 8.6 MG TABLET PO SCH ×2 (08:24→20:54)
[2023-06-05] MEDS: TAMSULOSIN 0.4 MG (FLOMAX) CAP PO SCH ×2 (08:24→20:54)
[2023-06-05] MEDS: carvediloL 12.5 MG TABLET PO SCH ×2 (08:24→18:32)
[2023-06-05] MEDS: amLODIPine 5 MG TABLET PO SCH (08:24)
[2023-06-05] MEDS: DOCUSATE SODIUM 100 MG CAPSULE PO SCH ×2 (08:24→20:55)
[2023-06-05] MEDS: VITAMIN D3 25 MCG (1,000 UNITS) TABLET PO SCH (08:24)
[2023-06-05] MEDS: POTASSIUM CHLORIDE 20 MEQ TABLET PO SCH ×2 (08:24→18:32)
[2023-06-05] MEDS: ALLOPURINOL 300 MG TABLET PO SCH (08:24)
[2023-06-05] MEDS: ASPIRIN enteric coated 81MG TABLET PO SCH (08:26)
[2023-06-05] MEDS: VITAMIN E 180 MG PO SCH ×2 (09:35→09:36)
[2023-06-05 11:11] VITALS: BP 149/81
--- NOTE | 2023-06-05 11:43 | Progress Note ---
Subjective Date Seen by a Provider: Jun 05, 2023 Time Seen by a Provider: 11:00 Subjective/Events-last exam Patient doing much better No major concerns Conferred with Dr. Tanner No falls Moving around better Review of Systems General: Fatigue, Malaise Focused Exam Lactate Level 06/02/23 21:12: Lactic Acid Level 1.52 Objective Exam Last Set of Vital Signs Vital Signs Date Time Temp Pulse Resp B/P (MAP) Pulse Ox O2 Delivery O2 Flow Rate FiO2 06/05/23 11:11 37.1 62 16 149/81 (103) 95 Room Air 06/05/23 03:45 1.00 06/03/23 00:16 28 Capillary Refill : Less Than 3 Seconds I&O Intake and Output 06/04/23 23:59 Intake Total 2990 ml Balance 2990 ml Intake Oral 2640 ml IV Total 350 ml # Voids 8 # Bowel Movements 2 General: Alert, Oriented X3, Cooperative, No Acute Distress Lungs: Clear to Auscultation, Normal Air Movement Heart: Regular Rate, Normal S1, Normal S2, No Murmurs Psych/Mental Status: Mental Status NL, Mood NL Results Lab Laboratory Tests 06/04/23 22:48: Vancomycin Level Trough 7.4L 06/05/23 05:22: White Blood Count 12.1H, Red Blood Count 3.98L, Hemoglobin 12.1L, Hematocrit 36L , Mean Corpuscular Volume 89, Mean Corpuscular Hemoglobin 30, Mean Corpuscular Hemoglobin Concent 34, Red Cell Distribution Width 13.0, Platelet Count 142, Mean Platelet Volume 10.3, Immature Granulocyte % (Auto) 1, Neutrophils (%) (Auto) 89H, Lymphocytes (%) (Auto) 5L, Monocytes (%) (Auto) 4, Eosinophils (%) (Auto) 1, Basophils (%) (Auto) 0, Neutrophils # (Auto) 10.7H, Lymphocytes # (Auto) 0.6L, Monocytes # (Auto) 0.5, Eosinophils # (Auto) 0.1, Basophils # (Auto) 0.1, Immature Granulocyte # (Auto) 0.2H, Sodium Level 141, Potassium Level 3.3L, Chloride Level 106, Carbon Dioxide Level 25, Anion Gap 10, Blood Urea Nitrogen 16, Creatinine 1.06, Estimat Glomerular Filtration Rate 70, BUN/Creatinine Ratio 15, Glucose Level 89, Calcium Level 8.5, Corrected Calcium 9.4, Total Bilirubin 0.6, Aspartate Amino Transf (AST/SGOT) 76H, Alanine Aminotransferase (ALT/SGPT) 108H, Alkaline Phosphatase 103, Total Protein 5.8L, Albumin 2.9L Microbiology 06/03/23 Urine Culture - Preliminary, Resulted Gram Negative Bacillus 1 06/02/23 Blood Culture - Preliminary, Resulted Assessment/Plan Assessment/Plan Assess & Plan/Chief Complaint Assessment: Testicular cellulitis Debility Plan: IV antibiotics Ambulate Clinical Quality Measures Admission Status Admission Dx Assessment: Sepsis Testicular infection BPH Hypertension Hyperlipidemia Gout Plan: IV antibiotics Urology consult Monitor closely VEENA VARGAS DO Jun 05, 2023 11:43
--- NOTE | 2023-06-05 14:14 | Progress Note ---
Progress Note Pt concerned about inability to retract foreskin. He is o/w doing better He remains afeb and WBC is improving. Culture results pending PE: not much change in penile swelling and left hemiscrotal/testis induration. May be a little better A/P: left epididymoorchitis, improving slowly he does not need to retract foreskin can go home tomorrow f/u with me in 2-3 weeks Omar DÍAZ MD Jun 05, 2023 14:14
[2023-06-05 16:19] VITALS: BP 150/82
[2023-06-05 19:17] VITALS: BP 154/86
[2023-06-05] MEDS: FINASTERIDE 5 MG TABLET PO SCH (20:54)
[2023-06-05] MEDS: ENOXAPARIN 40 MG/0.4 ML SYRINGE SC SCH (22:54)
[2023-06-06 00:30] VITALS: BP 169/94
[2023-06-06 03:27] VITALS: BP 169/89
[2023-06-06] MEDS: PIPERACILLIN/Tazobactam 4.5 GM in NS (IVPB) 100 ML 100 ML IV SCH ×2 (04:22→12:04)
[2023-06-06 05:54] LABS: BASOPHILS # (AUTO) 0.1 10^3/uL (0.0-0.1); BASOPHILS % (AUTO) 1 % (0-10); EOSINOPHILS # (AUTO) 0.1 10^3/uL (0.0-0.3); EOSINOPHILS % (AUTO) 1 % (0-10); HEMATOCRIT 37 % (40-54); HEMOGLOBIN 12.6 g/dL (13.3-17.7); LYMPHOCYTES # (AUTO) 0.7 10^3/uL (1.0-4.0); LYMPHOCYTES % (AUTO) 8 % (12-44); MEAN CORPUSCULAR HEMOGLOBIN 30 pg (25-34); MEAN CORPUSCULAR HGB CONC 34 g/dL (32-36); MEAN CORPUSCULAR VOLUME 89 fL (80-99); MEAN PLATELET VOLUME 10.4 fL (9.0-12.2); MONOCYTES # (AUTO) 0.5 10^3/uL (0.0-1.0); MONOCYTES % (AUTO) 5 % (0-12); NEUTROPHILS # (AUTO) 7.1 10^3/uL (1.8-7.8); NEUTROPHILS % (AUTO) 83 % (42-75); PLATELET COUNT 162 10^3/uL (130-400); WHITE BLOOD COUNT 8.6 10^3/uL (4.3-11.0)
[2023-06-06 06:14] LABS: ALBUMIN 3.1 GM/DL (3.2-4.5); BILIRUBIN,TOTAL 0.5 MG/DL (0.1-1.0); CALCIUM 8.7 MG/DL (8.5-10.1); CREATININE SERUM 0.87 MG/DL (0.60-1.30); POTASSIUM 3.2 MMOL/L (3.6-5.0); TOTAL PROTEIN 6.1 GM/DL (6.4-8.2)
[2023-06-06] MEDS: PANTOPRAZOLE 40 MG TABLET PO SCH (06:17)
[2023-06-06] MEDS: THERAPEUTIC MULTIVITAMIN W/MINERALS TABLET PO SCH (06:17)
[2023-06-06] MEDS: SENNOSIDES 8.6 MG TABLET PO SCH (08:10)
[2023-06-06] MEDS: amLODIPine 5 MG TABLET PO SCH (08:10)
[2023-06-06] MEDS: ASPIRIN enteric coated 81MG TABLET PO SCH (08:10)
[2023-06-06] MEDS: VITAMIN E 180 MG PO SCH (08:10)
[2023-06-06] MEDS: ALLOPURINOL 300 MG TABLET PO SCH (08:10)
[2023-06-06] MEDS: TAMSULOSIN 0.4 MG (FLOMAX) CAP PO SCH (08:10)
[2023-06-06] MEDS: carvediloL 12.5 MG TABLET PO SCH (08:10)
[2023-06-06] MEDS: POTASSIUM CHLORIDE 20 MEQ TABLET PO SCH (08:10)
[2023-06-06] MEDS: FUROSEMIDE 20 MG TABLET PO SCH (08:10)
[2023-06-06] MEDS: VITAMIN D3 25 MCG (1,000 UNITS) TABLET PO SCH (08:10)
[2023-06-06] MEDS: DOCUSATE SODIUM 100 MG CAPSULE PO SCH (08:10)
[2023-06-06 08:20] VITALS: BP 138/63
--- NOTE | 2023-06-06 08:22 | Progress Note ---
Subjective Date Seen by a Provider: Jun 06, 2023 Time Seen by a Provider: 11:00 Objective Exam Last Set of Vital Signs Vital Signs Date Time Temp Pulse Resp B/P (MAP) Pulse Ox O2 Delivery O2 Flow Rate FiO2 06/06/23 08:20 37.2 66 20 138/63 (88) 94 Nasal Cannula 2.00 06/03/23 00:16 28 Capillary Refill : Less Than 3 Seconds I&O Intake and Output 06/05/23 23:59 Intake Total 2880 ml Balance 2880 ml Intake Oral 2880 ml # Voids 8 Results Lab Laboratory Tests 06/06/23 04:59: White Blood Count 8.6, Red Blood Count 4.17L, Hemoglobin 12.6L, Hematocrit 37L, Mean Corpuscular Volume 89, Mean Corpuscular Hemoglobin 30, Mean Corpuscular Hemoglobin Concent 34, Red Cell Distribution Width 13.0, Platelet Count 162, Mean Platelet Volume 10.4, Immature Granulocyte % (Auto) 3, Neutrophils (%) (Auto) 83H, Lymphocytes (%) (Auto) 8L, Monocytes (%) (Auto) 5, Eosinophils (%) (Auto) 1, Basophils (%) (Auto) 1, Neutrophils # (Auto) 7.1, Lymphocytes # (Auto) 0.7L, Monocytes # (Auto) 0.5, Eosinophils # (Auto) 0.1, Basophils # (Auto) 0.1, Immature Granulocyte # (Auto) 0.2H, Sodium Level 142, Potassium Level 3.2L, Chloride Level 106, Carbon Dioxide Level 24, Anion Gap 12, Blood Urea Nitrogen 12, Creatinine 0.87, Estimat Glomerular Filtration Rate 86, BUN/Creatinine Ratio 14, Glucose Level 91, Calcium Level 8.7, Corrected Calcium 9.4, Total Bilirubin 0.5, Aspartate Amino Transf (AST/SGOT) 83H, Alanine Aminotransferase (ALT/SGPT) 127H, Alkaline Phosphatase 124, Total Protein 6.1L, Albumin 3.1L Microbiology 06/03/23 Urine Culture - Preliminary, Resulted Gram Negative Bacillus 1 06/02/23 Blood Culture - Preliminary, Resulted Assessment/Plan Assessment/Plan Assess & Plan/Chief Complaint Assessment: Testicular cellulitis Debility Plan: IV antibiotics Ambulate Clinical Quality Measures Admission Status Admission Dx Assessment: Sepsis Testicular infection BPH Hypertension Hyperlipidemia Gout Plan: IV antibiotics Urology consult Monitor closely VEENA VARGAS DO Jun 06, 2023 08:22
[2023-06-06 10:54] VITALS: BP 138/63
[2023-06-06 11:31] VITALS: BP 165/89
[2023-06-06] MEDS ORDERED: AMOX1TAB12 PO (12:53)
--- NOTE | 2023-06-06 12:56 | Discharge Summary ---
Diagnosis/Chief Complaint Date of Admission Jun 02, 2023 at 23:08 Date of Discharge Discharge Date: Jun 06, 2023 Discharge Diagnosis Assessment: Sepsis Scrotal infection BPH Hypertension Hyperlipidemia Gout Reason Hospital Visit Chief complaint: Testicular infection with sepsis HPI: This is an 82-year-old male who presented to the hospital with testicular pain found to have cellulitis and infection of the testicle. Urology has been evaluating him and he sees them on a regular basis. He will be maintained on broad-spectrum IV antibiotics. Discharge Summary Discharge Physical Examination Allergies: Coded Allergies: No Known Drug Allergies (Unverified , 11/11/10) Vitals & I&Os Vital Signs Date Time Temp Pulse Resp B/P (MAP) Pulse Ox O2 Delivery O2 Flow Rate FiO2 06/06/23 13:55 36.8 84 18 165/89 92 Room Air 2.00 06/03/23 00:16 28 General Appearance: Alert, Oriented X3, Cooperative Respiratory: Clear to Auscultation Cardiovascular: Regular Rate Psych/Mental Status: Mental Status NL Hospital Course Was the Problem List Reviewed?: Yes Hospital course: Patient had an uneventful hospital course after he was admitted for scrotal infection cellulitis placed on [address] Tanner consulted. Labs returned back to normal he was back to his baseline function and was discharged in improved condition on antibiotics. Labs (last 24 hrs) Laboratory Tests 06/02/23 21:12: White Blood Count 21.5H, Red Blood Count 4.77, Hemoglobin 14.6, Hematocrit 42, Mean Corpuscular Volume 89, Mean Corpuscular Hemoglobin 31, Mean Corpuscular Hemoglobin Concent 34, Red Cell Distribution Width 13.0, Platelet Count 150, Mean Platelet Volume 10.4, Immature Granulocyte % (Auto) 1, Neutrophils (%) (Auto) 91H, Lymphocytes (%) (Auto) 1L, Monocytes (%) (Auto) 6, Eosinophils (%) (Auto) 0, Basophils (%) (Auto) 0, Neutrophils # (Auto) 19.6H, Lymphocytes # (Auto) 0.3L, Monocytes # (Auto) 1.3H, Eosinophils # (Auto) 0.0, Basophils # (Auto) 0.1, Immature Granulocyte # (Auto) 0.2H, Neutrophils % (Manual) 88, Lymphocytes % (Manual) 6, Monocytes % (Manual) 3, Band Neutrophils 3, Blood Morphology Comment NORMAL, Prothrombin Time 14.7, INR Comment 1.1, Activated Partial Thromboplast Time 35, Sodium Level 132L, Potassium Level 3.4L, Chloride Level 97L, Carbon Dioxide Level 23, Anion Gap 12, Blood Urea Nitrogen 22H, Creatinine 1.06, Estimat Glomerular Filtration Rate 70, BUN/Creatinine Ratio 21, Glucose Level 121H, Lactic Acid Level 1.52, Calcium Level 9.0, Corrected Calcium 9.2, Magnesium Level 2.0, Total Bilirubin 1.6H, Aspartate Amino Transf (AST/SGOT) 193H, Alanine Aminotransferase (ALT/SGPT) 151H, Alkaline Phosphatase 141H, Total Protein 7.0, Albumin 3.7, Amylase Level 91, Lipase 87H 06/02/23 21:42: Erythrocyte Sedimentation Rate 20, C-Reactive Protein High Sensitivity 23.67H 06/02/23 22:40: Influenza Type A (RT-PCR) Not Detected, Influenza Type B (RT-PCR) Not Detected, SARS-CoV-2 RNA (RT-PCR) Not Detected 06/03/23 00:45: Urine Color YELLOW, Urine Clarity CLEAR, Urine pH 5.5, Urine Specific [place] <=1.005, Urine Protein 2+H, Urine Glucose (UA) NEGATIVE, Urine Ketones NEGATIVE, Urine Nitrite NEGATIVE, Urine Bilirubin NEGATIVE, Urine Urobilinogen 4.0, Urine Leukocyte Esterase TRACEH, Urine RBC (Auto) TRACEH, Urine RBC 0-2, Urine WBC 5- 10H, Urine Squamous Epithelial Cells 0-2, Urine Crystals PRESENTH, Urine Amorphous Sediment RARE CHARITO URATESH, Urine Bacteria FEWH, Urine Casts NONE, Urine Mucus SMALLH, Urine Culture Indicated CULTURE PENDING 06/03/23 05:10: White Blood Count 19.4H, Red Blood Count 4.05L, Hemoglobin 12.4L, Hematocrit 36L , Mean Corpuscular Volume 90, Mean Corpuscular Hemoglobin 31, Mean Corpuscular Hemoglobin Concent 34, Red Cell Distribution Width 13.0, Platelet Count 130, Mean Platelet Volume 10.6, Immature Granulocyte % (Auto) 2, Neutrophils (%) (Auto) 89H, Lymphocytes (%) (Auto) 3L, Monocytes (%) (Auto) 6, Eosinophils (%) (Auto) 0, Basophils (%) (Auto) 0, Neutrophils # (Auto) 17.3H, Lymphocytes # (Auto) 0.5L, Monocytes # (Auto) 1.1H, Eosinophils # (Auto) 0.0, Basophils # (Auto) 0.1, Immature Granulocyte # (Auto) 0.4H, Percent Immature Platelet Fraction 3.8, Sodium Level 134L, Potassium Level 3.7, Chloride Level 100, Carbon Dioxide Level 26, Anion Gap 8, Blood Urea Nitrogen 18, Creatinine 1.04, Estimat Glomerular Filtration Rate 71, BUN/Creatinine Ratio 17, Glucose Level 106H, Calcium Level 8.3L, Corrected Calcium 9.1, Total Bilirubin 1.3H, Aspartate Amino Transf (AST/SGOT) 124H, Alanine Aminotransferase (ALT/SGPT) 123H, Alkaline Phosphatase 110, Total Protein 5.8L, Albumin 3.0L 06/04/23 05:20: White Blood Count 16.6H, Red Blood Count 4.03L, Hemoglobin 12.4L, Hematocrit 36L , Mean Corpuscular Volume 90, Mean Corpuscular Hemoglobin 31, Mean Corpuscular Hemoglobin Concent 34, Red Cell Distribution Width 13.2, Platelet Count 141, Sosa n Platelet Volume 10.5, Immature Granulocyte % (Auto) 1, Neutrophils (%) (Auto) 91H, Lymphocytes (%) (Auto) 3L, Monocytes (%) (Auto) 4, Eosinophils (%) (Auto) 0, Basophils (%) (Auto) 0, Neutrophils # (Auto) 15.2H, Lymphocytes # (Auto) 0.5L , Monocytes # (Auto) 0.7, Eosinophils # (Auto) 0.1, Basophils # (Auto) 0.1, Immature Granulocyte # (Auto) 0.2H, Sodium Level 138, Potassium Level 3.2L, Chloride Level 104, Carbon Dioxide Level 25, Anion Gap 9, Blood Urea Nitrogen 19H, Creatinine 1.11, Estimat Glomerular Filtration Rate 66, BUN/Creatinine Ratio 17, Glucose Level 94, Calcium Level 8.8, Corrected Calcium 9.6, Total Bilirubin 0.8, Aspartate Amino Transf (AST/SGOT) 76H, Alanine Aminotransferase (ALT/SGPT) 103H, Alkaline Phosphatase 109, Total Protein 6.0L, Albumin 3.0L 06/04/23 22:48: Vancomycin Level Trough 7.4L 06/05/23 05:22: White Blood Count 12.1H, Red Blood Count 3.98L, Hemoglobin 12.1L, Hematocrit 36L , Mean Corpuscular Volume 89, Mean Corpuscular Hemoglobin 30, Mean Corpuscular Hemoglobin Concent 34, Red Cell Distribution Width 13.0, Platelet Count 142, Mean Platelet Volume 10.3, Immature Granulocyte % (Auto) 1, Neutrophils (%) (Auto) 89H, Lymphocytes (%) (Auto) 5L, Monocytes (%) (Auto) 4, Eosinophils (%) (Auto) 1, Basophils (%) (Auto) 0, Neutrophils # (Auto) 10.7H, Lymphocytes # (Auto) 0.6L, Monocytes # (Auto) 0.5, Eosinophils # (Auto) 0.1, Basophils # (Auto) 0.1, Immature Granulocyte # (Auto) 0.2H, Sodium Level 141, Potassium Level 3.3L, Chloride Level 106, Carbon Dioxide Level 25, Anion Gap 10, Blood Urea Nitrogen 16, Creatinine 1.06, Estimat Glomerular Filtration Rate 70, BUN/Creatinine Ratio 15, Glucose Level 89, Calcium Level 8.5, Corrected Calcium 9.4, Total Bilirubin 0.6, Aspartate Amino Transf (AST/SGOT) 76H, Alanine Aminotransferase (ALT/SGPT) 108H, Alkaline Phosphatase 103, Total Protein 5.8L, Albumin 2.9L 06/06/23 04:59: White Blood Count 8.6, Red Blood Count 4.17L, Hemoglobin 12.6L, Hematocrit 37L, Mean Corpuscular Volume 89, Mean Corpuscular Hemoglobin 30, Mean Corpuscular Hemoglobin Concent 34, Red Cell Distribution Width 13.0, Platelet Count 162, Mean Platelet Volume 10.4, Immature Granulocyte % (Auto) 3, Neutrophils (%) (Auto) 83H, Lymphocytes (%) (Auto) 8L, Monocytes (%) (Auto) 5, Eosinophils (%) (Auto) 1, Basophils (%) (Auto) 1, Neutrophils # (Auto) 7.1, Lymphocytes # (Auto) 0.7L, Monocytes # (Auto) 0.5, Eosinophils # (Auto) 0.1, Basophils # (Auto) 0.1, Immature Granulocyte # (Auto) 0.2H, Sodium Level 142, Potassium Level 3.2L, Chloride Level 106, Carbon Dioxide Level 24, Anion Gap 12, Blood Urea Nitrogen 12, Creatinine 0.87, Estimat Glomerular Filtration Rate 86, BUN/Creatinine Ratio 14, Glucose Level 91, Calcium Level 8.7, Corrected Calcium 9.4, Total Bilirubin 0.5, Aspartate Amino Transf (AST/SGOT) 83H, Alanine Aminotransferase (ALT/SGPT) 127H, Alkaline Phosphatase 124, Total Protein 6.1L, Albumin 3.1L Microbiology 06/03/23 Urine Culture - Preliminary, Resulted Gram Negative Bacillus 1 06/02/23 Blood Culture - Preliminary, Resulted Pending Labs Microbiology Date/Time Source Procedure Growth Status 06/03/23 00:45 Urine Clean Catch Urine Culture - Preliminary Gram Negative Bacillus 1 Resulted 06/02/23 21:15 Peripheral Rt Forearm Blood Culture - Preliminary Resulted 06/02/23 21:12 Peripheral Left Wrist Blood Culture - Preliminary Resulted Laboratory Tests 06/02/23 21:12: White Blood Count 21.5, Red Blood Count 4.77, Hemoglobin 14.6, Hematocrit 42, Mean Corpuscular Volume 89, Mean Corpuscular Hemoglobin 31, Mean Corpuscular Hemoglobin Concent 34, Red Cell Distribution Width 13.0, Platelet Count 150, Mean Platelet Volume 10.4, Immature Granulocyte % (Auto) 1, Neutrophils (%) (Auto) 91, Lymphocytes (%) (Auto) 1, Monocytes (%) (Auto) 6, Eosinophils (%) (Auto) 0, Basophils (%) (Auto) 0, Neutrophils # (Auto) 19.6, Lymphocytes # (Auto) 0.3, Monocytes # (Auto) 1.3, Eosinophils # (Auto) 0.0, Basophils # (Auto) 0.1, Immature Granulocyte # (Auto) 0.2, Neutrophils % (Manual) 88, Lymphocytes % (Manual) 6, Monocytes % (Manual) 3, Band Neutrophils 3, Blood Morphology Comment NORMAL, Prothrombin Time 14.7, INR Comment 1.1, Activated Partial Thromboplast Time 35, Sodium Level 132, Potassium Level 3.4, Chloride Level 97, Carbon Dioxide Level 23, Anion Gap 12, Blood Urea Nitrogen 22, Creatinine 1.06, Estimat Glomerular Filtration Rate 70, BUN/Creatinine Ratio 21, Glucose Level 121, Lactic Acid Level 1.52, Calcium Level 9.0, Corrected Calcium 9.2, Magnesium Level 2.0, Total Bilirubin 1.6, Aspartate Amino Transf (AST/SGOT) 193, Alanine Aminotransferase (ALT/SGPT) 151, Alkaline Phosphatase 141, Total Protein 7.0, Albumin 3.7, Amylase Level 91, Lipase 87 06/02/23 21:42: Erythrocyte Sedimentation Rate 20, C-Reactive Protein High Sensitivity 23.67 06/02/23 22:40: Influenza Type A (RT-PCR) Not Detected, Influenza Type B (RT-PCR) Not Detected, SARS-CoV-2 RNA (RT-PCR) Not Detected 06/03/23 00:45: Urine Color YELLOW, Urine Clarity CLEAR, Urine pH 5.5, Urine Specific [place] <=1.005, Urine Protein 2+, Urine Glucose (UA) NEGATIVE, Urine Ketones NEGATIVE, Urine Nitrite NEGATIVE, Urine Bilirubin NEGATIVE, Urine Urobilinogen 4.0, Urine Leukocyte Esterase TRACE, Urine RBC (Auto) TRACE, Urine RBC 0-2, Urine WBC 5-10, Urine Squamous Epithelial Cells 0-2, Urine Crystals PRESENT, Urine Amorphous Sediment RARE CHARITO URATES, Urine Bacteria FEW, Urine Casts NONE, Urine Mucus SMALL, Urine Culture Indicated CULTURE PENDING 06/03/23 05:10: White Blood Count 19.4, Red Blood Count 4.05, Hemoglobin 12.4, Hematocrit 36, Mean Corpuscular Volume 90, Mean Corpuscular Hemoglobin 31, Mean Corpuscular Hemoglobin Concent 34, Red Cell Distribution Width 13.0, Platelet Count 130, Mean Platelet Volume 10.6, Immature Granulocyte % (Auto) 2, Neutrophils (%) (Auto) 89, Lymphocytes (%) (Auto) 3, Monocytes (%) (Auto) 6, Eosinophils (%) (Auto) 0, Basophils (%) (Auto) 0, Neutrophils # (Auto) 17.3, Lymphocytes # (Auto) 0.5, Monocytes # (Auto) 1.1, Eosinophils # (Auto) 0.0, Basophils # (Auto) 0.1, Immature Granulocyte # (Auto) 0.4, Percent Immature Platelet Fraction 3.8, Sodium Level 134, Potassium Level 3.7, Chloride Level 100, Carbon Dioxide Level 26, Anion Gap 8, Blood Urea Nitrogen 18, Creatinine 1.04, Estimat Glomerular Filtration Rate 71, BUN/Creatinine Ratio 17, Glucose Level 106, Calcium Level 8.3, Corrected Calcium 9.1, Total Bilirubin 1.3, Aspartate Amino Transf (AST/SGOT) 124, Alanine Aminotransferase (ALT/SGPT) 123, Alkaline Phosphatase 110, Total Protein 5.8, Albumin 3.0 06/04/23 05:20: White Blood Count 16.6, Red Blood Count 4.03, Hemoglobin 12.4, Hematocrit 36, Mean Corpuscular Volume 90, Mean Corpuscular Hemoglobin 31, Mean Corpuscular Hemoglobin Concent 34, Red Cell Distribution Width 13.2, Platelet Count 141, Mean Platelet Volume 10.5, Immature Granulocyte % (Auto) 1, Neutrophils (%) (Auto) 91, Lymphocytes (%) (Auto) 3, Monocytes (%) (Auto) 4, Eosinophils (%) (Auto) 0, Basophils (%) (Auto) 0, Neutrophils # (Auto) 15.2, Lymphocytes # (Auto) 0.5, Monocytes # (Auto) 0.7, Eosinophils # (Auto) 0.1, Basophils # (Auto) 0.1, Immature Granulocyte # (Auto) 0.2, Sodium Level 138, Potassium Level 3.2, Chloride Level 104, Carbon Dioxide Level 25, Anion Gap 9, Blood Urea Nitrogen 19, Creatinine 1.11, Estimat Glomerular Filtration Rate 66, BUN/Creatinine Ratio 17, Glucose Level 94, Calcium Level 8.8, Corrected Calcium 9.6, Total Bilirubin 0.8, Aspartate Amino Transf (AST/SGOT) 76, Alanine Aminotransferase (ALT/SGPT) 103, Alkaline Phosphatase 109, Total Protein 6.0, Albumin 3.0 06/04/23 22:48: Vancomycin Level Trough 7.4 06/05/23 05:22: White Blood Count 12.1, Red Blood Count 3.98, Hemoglobin 12.1, Hematocrit 36, Mean Corpuscular Volume 89, Mean Corpuscular Hemoglobin 30, Mean Corpuscular Hemoglobin Concent 34, Red Cell Distribution Width 13.0, Platelet Count 142, Mean Platelet Volume 10.3, Immature Granulocyte % (Auto) 1, Neutrophils (%) (Auto) 89, Lymphocytes (%) (Auto) 5, Monocytes (%) (Auto) 4, Eosinophils (%) (Auto) 1, Basophils (%) (Auto) 0, Neutrophils # (Auto) 10.7, Lymphocytes # (Auto) 0.6, Monocytes # (Auto) 0.5, Eosinophils # (Auto) 0.1, Basophils # (Auto) 0.1, Immature Granulocyte # (Auto) 0.2, Sodium Level 141, Potassium Level 3.3, Chloride Level 106, Carbon Dioxide Level 25, Anion Gap 10, Blood Urea Nitrogen 16, Creatinine 1.06, Estimat Glomerular Filtration Rate 70, BUN/Creatinine Ratio 15, Glucose Level 89, Calcium Level 8.5, Corrected Calcium 9.4, Total Bilirubin 0.6, Aspartate Amino Transf (AST/SGOT) 76, Alanine Aminotransferase (ALT/SGPT) 108, Alkaline Phosphatase 103, Total Protein 5.8, Albumin 2.9 06/06/23 04:59: White Blood Count 8.6, Red Blood Count 4.17, Hemoglobin 12.6, Hematocrit 37, Mean Corpuscular Volume 89, Mean Corpuscular Hemoglobin 30, Mean Corpuscular Hemoglobin Concent 34, Red Cell Distribution Width 13.0, Platelet Count 162, Mean Platelet Volume 10.4, Immature Granulocyte % (Auto) 3, Neutrophils (%) (Auto) 83, Lymphocytes (%) (Auto) 8, Monocytes (%) (Auto) 5, Eosinophils (%) (Auto) 1, Basophils (%) (Auto) 1, Neutrophils # (Auto) 7.1, Lymphocytes # (Auto) 0.7, Monocytes # (Auto) 0.5, Eosinophils # (Auto) 0.1, Basophils # (Auto) 0.1, Immature Granulocyte # (Auto) 0.2, Sodium Level 142, Potassium Level 3.2, Chloride Level 106, Carbon Dioxide Level 24, Anion Gap 12, Blood Urea Nitrogen 12, Creatinine 0.87, Estimat Glomerular Filtration Rate 86, BUN/Creatinine Ratio 14, Glucose Level 91, Calcium Level 8.7, Corrected Calcium 9.4, Total Bilirubin 0.5, Aspartate Amino Transf (AST/SGOT) 83, Alanine Aminotransferase (ALT/SGPT) 127, Alkaline Phosphatase 124, Total Protein 6.1, Albumin 3.1 Discharge Home Medications: Active Scripts Active Amox Tr-K Clv 875-125 mg Tab (Amoxicillin/Potassium Clav) 875 Mg-125 Mg Tablet 1 Each PO BID Reported Aspirin EC (Aspirin) 81 Mg Tablet.dr 81 Mg PO DAILY Vitamin E (Vitamin E Mixed) 400 Unit Tablet 400 Unit PO DAILY Vitamin D3 (Cholecalciferol (Vitamin D3)) 50 Mcg (2000 Unit) Capsule 50 Mcg PO DAILY Multivitamin 1 Each Tablet 1 Each PO DAILY Vitamin C (Ascorbate Calcium) 500 Mg Tablet 500 Mg PO DAILY Pantoprazole Sodium 40 Mg Tablet.dr 40 Mg PO DAILY Furosemide 20 Mg Tablet 20 Mg PO DAILY Flomax (Tamsulosin HCl) 0.4 Mg Cap 0.4 Mg PO BID Finasteride 5 Mg Tablet 5 Mg PO HS Allopurinol 300 Mg Tablet 300 Mg PO DAILY Atorvastatin Calcium 40 Mg Tablet 20 Mg PO HS TAKES OF A 40MG TAB Nebivolol HCl 10 Mg Tablet 10 Mg PO HS Benazepril HCl 20 Mg Tablet 20 Mg PO DAILY Amlodipine Besylate 5 Mg Tablet 5 Mg PO DAILY Instructions to patient/family Please see electronic discharge instructions given to patient. VEENA VARGAS DO Jun 06, 2023 12:56
[2023-06-06 13:55] VITALS: BP 165/89
== END 2023-06-06 14:05 | disposition home or self-care (01) | DRG 872 ==
LOC: EDUNIT# 20:57 → ER 20:59 → 4TH 23:08
PROVIDERS: ADMIT Internal Medicine; ATTEND Internal Medicine
DX: A41.9 Sepsis, unspecified organism (principal); N45.3 Epididymo-orchitis; N40.0 Benign prostatic hyperplasia without lower urinary tract symptoms; I10 Essential (primary) hypertension; M10.9 Gout, unspecified; E87.6 Hypokalemia; R74.01 Elevation of levels of liver transaminase levels; N28.89 Other specified disorders of kidney and ureter; E80.6 Other disorders of bilirubin metabolism; E78.00 Pure hypercholesterolemia, unspecified; I25.10 Atherosclerotic heart disease of native coronary artery without angina pectoris; I25.2 Old myocardial infarction; Z95.5 Presence of coronary angioplasty implant and graft; Z79.82 Long term (current) use of aspirin; Z79.899 Other long term (current) drug therapy; Z20.822 Contact with and (suspected) exposure to COVID-19
CPT/HCPCS: 36415; 71045; 71260; 74177; 80053; 80202; 81000; 82150; 83605; 83690; 83735; 85007; 85025; 85027; 85610; 85652; 85730; 86141; 87040; 87088; 87636; 93041; 94760; 96365; 96375

== ENCOUNTER → 2023-06-02 | Outpatient (CLI) | payer MEDICARE, OTHER ==
[~2023-06-02] MED LIST changes: +ALLO300T2 PO; +ASCO-262 PO; +ATOR40TA70 PO; +CHOL20002 PO; +DOXY100C5 PO; +FINA5TAB6 PO; +FURO20TA4 PO; +MULT-1136 PO; +NEBI10TA11 PO; +TMSL.4C PO; +VITA400T9 PO
--- NOTE | 2023-06-02 14:51 | Diagnostic Imaging Report ---
INDICATION: Left scrotal pain and swelling. TECHNIQUE: Scrotal sonography performed in the routine fashion. FINDINGS: The right testicle measured 6.0 x 3.1 x 3.4 cm. The right testicle contains color flow. The right epididymis shows a couple of tiny cysts, the largest measuring 1.6 x 0.5 cm. There is a minimal right hydrocele. The left testicle measured 5.8 x 3.9 x 3.5 cm and appeared hypervascular, suggesting orchitis. There is no discrete mass. There is a moderate-sized left hydrocele. There is a small left epididymal cyst measuring 6 mm. The left epididymis appears enlarged and hypervascular compatible with epididymitis. IMPRESSION: Hypervascular right testicle and enlarged hypervascular epididymis, compatible with epididymitis and orchitis on the left side. There is no testicular mass or torsion. There is color flow preserved. There are small hydroceles. There are small epididymal head cysts on both sides. Dictated by: Dictated on workstation # [id number]
== END ==
LOC: RAD 13:04
PROVIDERS: ATTEND Family Medicine
DX: N43.3 Hydrocele, unspecified (principal); N50.3 Cyst of epididymis
CPT/HCPCS: 76870